=== PATIENT | male | born 1955 | race Caucasian/White ===

== ENCOUNTER 2020-12-02 13:15 | Outpatient (REF) | payer OTHER, SELFPAY ==
[2020-12-02 14:22] LABS: Glucose Urine UA NEG (NEG); Leukocyte Esterase Urine NEG (NEG); Nitrite Urine NEG (NEG); PH 5.5 (5.0-8.0); Specific Gravity - Urine >= 1.030 (1.005-1.025); Urine Blood 3+ (NEG); Urine Ketones NEG (NEG); Urine Protein 1+ MG/DL (NEG-TRACE)
[2020-12-02 14:26] LABS: Appearance Urine HAZY; Color Urine YELLOW
[2020-12-02 14:57] LABS: Bacteria Urine TRACE /LPF; RBC Urine 30-49 /HPF (0); Renal Epithelial Cells Urine TRACE /LPF; UACC CULT YES
== END 2020-12-02 13:16 | disposition home or self-care (01) ==
LOC: HO.LAB 13:15
PROVIDERS: PCP Internal Medicine; Visit Provider Internal Medicine
DX: R30.0 Dysuria (principal)
CPT/HCPCS: 81001; 81003; 87086

== ENCOUNTER 2020-12-09 16:06 | Outpatient (REF) | payer OTHER, SELFPAY ==
--- NOTE | 2020-12-09 | US_ITS ---
EXAMINATION: US RETROPERITONEAL COMPLETE (RENAL) CLINICAL INFORMATION: Urgency, frequency, hematuria. COMPARISON: None TECHNIQUE: Real-time imaging of the kidneys and bladder. FINDINGS: RIGHT KIDNEY: 11.0 x 5.7 x 6.2 cm (SAG x AP x TRV). No hydronephrosis or caliectasis. Renal parenchymal thickness and echogenicity are normal. No renal parenchymal lesion. There are specular echoes interpolar region without twinkling artifact or definite shadowing to confirm calculi. LEFT KIDNEY: 10.0 x 5.8 x 5.7 cm (SAG x AP x TRV). There are scattered small noncommunicating cystic foci in the renal sinus suggesting parapelvic cysts. There is no hydronephrosis. Renal parenchymal thickness and echogenicity are normal. There are scattered specular echoes in the renal sinus but without twinkling artifact or shadowing to confirm calculi. BLADDER: There is mild circumferential bladder wall thickening with trabeculation suggesting chronic bladder outlet obstruction. There are bilateral ureteral jets on color Doppler at the bladder base. No bladder base debris or visible calculus. Prevoid bladder volume 172 mL. Post void bladder residual volume 12 mL. The prostate measures 4.0 x 3.5 x 4.9 cm (volume 35 mL). US/US retroperitoneal comp IMPRESSION: 1. Right: No hydronephrosis or parenchymal lesion. 2. Left: Probable small parapelvic cysts renal sinus. No hydronephrosis or parenchymal lesion. 3. Bilateral: Scattered renal sinus echo echoes without shadowing or twinkling artifact to confirm nonobstructing calculi. 4. Bladder wall trabeculation suggesting chronic mild bladder outlet obstruction. Prostate mildly enlarged (35 mL).
== END 2020-12-09 16:07 | disposition home or self-care (01) ==
LOC: HO.US 16:06
PROVIDERS: PCP Internal Medicine; Visit Provider Internal Medicine
DX: R31.9 Hematuria, unspecified (principal); R39.15 Urgency of urination; R35.0 Frequency of micturition
CPT/HCPCS: 76770

== ENCOUNTER → 2021-03-05 09:26 | Outpatient (BNVA) | payer OTHER, SELFPAY | PROVIDERS: PCP Internal Medicine; Visit Provider Urology ==

== ENCOUNTER 2021-09-03 10:27 | Outpatient (REF) | payer OTHER, SELFPAY ==
[2021-09-03 11:30] LABS: Glucose Random 104 mg/dL (60-115)
[2021-09-03 11:51] LABS: Syphilis Screen Nonreactive (Nonreactive)
[2021-09-03 11:57] LABS: Vitamin B12 559 pg/mL (200-900)
[2021-09-03 11:58] LABS: Thyroid Stimulating Hormone 0.56 uIU/mL (0.32-4.0)
[2021-09-06 12:02] LABS: Ceruloplasmin 26 mg/dL (18-36)
[2021-09-06 22:02] LABS: Prot Elec - Albumin 4.1 g/dL (3.8-4.8); Prot Elec - Alpha1 0.3 g/dL (0.2-0.3); Prot Elec - Alpha2 0.6 g/dL (0.5-0.9); Prot Elec - Beta 1 0.5 g/dL (0.4-0.6); Prot Elec - Beta 2 0.3 g/dL (0.2-0.5); Prot Elec - Gamma 0.7 g/dL (0.8-1.7); Prot Elec - Total Protein 6.5 g/dL (6.1-8.1)
[2021-09-06 22:57] LABS: Anti Nuclear Antibody Screen NEGATIVE (NEGATIVE)
== END 2021-09-03 10:28 | disposition home or self-care (01) ==
LOC: HO.LAB 10:27
PROVIDERS: Internal Medicine; PCP Internal Medicine; Visit Provider Psychiatry & Neurology Neurology
DX: R20.0 Anesthesia of skin (principal); G62.9 Polyneuropathy, unspecified; R25.1 Tremor, unspecified
CPT/HCPCS: 36415; 82390; 82607; 82947; 84165; 84443; 86038; 86039; 86780

== ENCOUNTER 2023-01-23 14:34 | Outpatient (REF) | payer OTHER, MEDICARE, SELFPAY ==
[2023-01-23 15:52] LABS: Appearance Urine Cloudy; Color Urine Dark Yellow; Glucose Urine UA Negative (Negative); Leukocyte Esterase Urine Moderate (2+) (Negative); Nitrite Urine Negative (Negative); UMIC TRIGGER UA YES; Urine Blood Large (3+) (Negative); Urine Ketones Trace mg/dL (Negative); Urine Protein 100 (2+) mg/dL (Neg-Trace)
[2023-01-23 15:57] LABS: Bacteria Urine None Seen (None Seen); Hyaline Casts Urine 0-2 /LPF (0-2); RBC Urine >20 /HPF (0-2); WBC Urine >50 /HPF (0-5)
== END 2023-01-23 14:35 | disposition home or self-care (01) ==
LOC: HO.LAB 14:34
PROVIDERS: PCP Internal Medicine; Visit Provider Internal Medicine
DX: R30.0 Dysuria (principal)
CPT/HCPCS: 81001; 87086

== ENCOUNTER 2023-01-26 10:09 | Outpatient (REF) | payer MEDICARE, SELFPAY ==
--- NOTE | ~2023-01-26 | US_ITS ---
EXAMINATION: US RETROPERITONEAL COMPLETE (RENAL) CLINICAL INFORMATION: Hematuria. COMPARISON: 12/09/2020 TECHNIQUE: Real-time imaging of the kidneys and bladder. FINDINGS: RIGHT KIDNEY: 10.2 x 4.9 x 5.5 cm (SAG x AP x TRV). The kidney is normal in size, contour, and echogenicity. Renal cortical thickness is normal. No calculi or focal parenchymal lesions. No hydronephrosis. LEFT KIDNEY: 9.7 x 5.6 x 7.1 cm (SAG x AP x TRV). The kidney is normal in size, contour, and echogenicity. Renal cortical thickness is normal. A benign parapelvic cyst is present measuring 1.4 cm. This needs no additional imaging or follow-up. No calculi or solid focal parenchymal lesions. No hydronephrosis. BLADDER: Well distended and normal. Bilateral ureteral jets are demonstrated. Prevoid bladder volume is 102 mL. Postvoid bladder volume is 23 mL. PROSTATE: Prostate minimally prominent with a volume of 38 mL. US/US retroperitoneal comp IMPRESSION: No significant abnormality is seen. There is a mildly enlarged prostate. A cause for the patient's hematuria has not been found.
[2023-01-26 10:26] LABS: MANUAL DIFF FLAG NO
[2023-01-26 11:27] LABS: Urine Cytology See Pathology rpt
[2023-01-26 11:34] LABS: Basophils Percent Auto 0.9 % (0-2); Eosinophils Absolute Auto 0.3 X10*3/uL (0.0-0.4); Eosinophils Percent Auto 6.3 % (0-4); Hematocrit 47.3 % (42.0-52.0); Hemoglobin 16.4 g/dl (14.0-18.0); Imm Gran Abs Auto 0.01 X10*3/uL (0.00-0.03); Imm Gran Pct Auto 0.2 % (0.0-0.4); Lymphocytes Absolute Auto 1.5 X10*3/uL (1.2-4.9); Lymphocytes Percent Auto 31.5 % (20-40); Mean Corpuscular HGB Conc 34.7 g/dl (31.0-36.0); Mean Corpuscular Hemoglobin 30.7 pg (27.0-33.0); Mean Corpuscular Volume 88.6 fL (80.0-98.0); Mean Platelet Volume 9.7 fL (9.4-12.4); Monocytes Absolute Auto 0.6 X10*3/uL (0.1-1.2); Monocytes Percent Auto 12.9 % (2-11); Neutrophils Absolute Auto 2.2 x10*3/uL (2.0-8.3); Neutrophils Percent Auto 48.2 % (45-73); Platelet Count 179 X10*3/uL (160-400); Red Blood Count 5.34 X10*6/uL (4.60-5.80); Red Cell Distribution Width 12.8 % (11.0-16.0); White Blood Count 4.6 X10*3/uL (4.8-10.8)
[2023-01-26 16:14] LABS: Alanine Aminotransferase 35 U/L (0-40); Albumin Level 4.4 g/dL (3.5-5.0); Alkaline Phosphatase 68 U/L (39-117); Anion Gap 17 (12-20); Aspartate Amino Transferase 37 U/L (5-37); Bilirubin Total 1.3 mg/dL (0.0-1.0); Blood Urea Nitrogen 18 mg/dL (9-16); Calcium 9.2 mg/dL (8.4-10.2); Carbon Dioxide 22 mmol/L (22-29); Chloride 107 mmol/L (96-108); Cholesterol 175 mg/dL; Estimated Glomerular Filt Rate > 60; Glucose Fasting 88 mg/dL (60-99); HDL Cholesterol 47 mg/dL; LDL Cholesterol Calculated 100 mg/dl; Potassium 4.2 mmol/L (3.3-5.1); Sodium 142 mmol/L (135-145); Total Protein 6.6 g/dL (6.5-8.0); Triglycerides 140 mg/dL
[2023-01-26 16:17] LABS: Prostate Specific Antigen Scr 1.49 ng/mL (<0.05-4.0)
== END 2023-01-26 10:10 | disposition home or self-care (01) ==
LOC: HO.HMGCX 10:09
PROVIDERS: PCP Internal Medicine; Visit Provider Internal Medicine
DX: Z00.00 Encounter for general adult medical examination without abnormal findings (principal); R31.9 Hematuria, unspecified; Z12.5 Encounter for screening for malignant neoplasm of prostate; C80.1 Malignant (primary) neoplasm, unspecified
CPT/HCPCS: 36415; 76770; 80053; 80061; 84153; 85025; 88112

== ENCOUNTER 2023-01-31 15:08 | Outpatient (REF) | payer MEDICARE, SELFPAY ==
[2023-02-02 17:57] LABS: Lyme Abs Screen <0.90 index
== END 2023-01-31 15:09 | disposition home or self-care (01) ==
LOC: HO.LAB 15:08
PROVIDERS: PCP Internal Medicine; Visit Provider Internal Medicine
DX: T14.8XXA Other injury of unspecified body region, initial encounter (principal); W57.XXXA Bitten or stung by nonvenomous insect and other nonvenomous arthropods, initial encounter
CPT/HCPCS: 36415; 86617; 86618

== ENCOUNTER 2023-04-27 12:57 | Outpatient (REF) | payer MEDICARE, SELFPAY ==
[2023-04-27 13:10] LABS: MANUAL DIFF FLAG NO
[2023-04-27 13:37] LABS: Basophils Percent Auto 0.8 % (0-2); Eosinophils Absolute Auto 0.2 X10*3/uL (0.0-0.4); Eosinophils Percent Auto 3.9 % (0-4); Hematocrit 45.9 % (42.0-52.0); Hemoglobin 15.7 g/dl (14.0-18.0); Imm Gran Abs Auto 0.01 X10*3/uL (0.00-0.03); Imm Gran Pct Auto 0.2 % (0.0-0.4); Lymphocytes Absolute Auto 1.2 X10*3/uL (1.2-4.9); Lymphocytes Percent Auto 23.3 % (20-40); Mean Corpuscular HGB Conc 34.2 g/dl (31.0-36.0); Mean Corpuscular Hemoglobin 30.5 pg (27.0-33.0); Mean Corpuscular Volume 89.3 fL (80.0-98.0); Mean Platelet Volume 9.8 fL (9.4-12.4); Monocytes Absolute Auto 0.6 X10*3/uL (0.1-1.2); Monocytes Percent Auto 10.7 % (2-11); Neutrophils Absolute Auto 3.2 x10*3/uL (2.0-8.3); Neutrophils Percent Auto 61.1 % (45-73); Platelet Count 201 X10*3/uL (160-400); Red Blood Count 5.14 X10*6/uL (4.60-5.80); Red Cell Distribution Width 12.7 % (11.0-16.0); White Blood Count 5.2 X10*3/uL (4.8-10.8)
[2023-04-27 14:03] LABS: Alanine Aminotransferase < 5 U/L (0-40); Albumin Level 4.3 g/dL (3.5-5.0); Alkaline Phosphatase 74 U/L (39-117); Anion Gap 12 (12-20); Aspartate Amino Transferase 20 U/L (5-37); Bilirubin Total 1.1 mg/dL (0.0-1.0); Blood Urea Nitrogen 16 mg/dL (9-16); C Reactive Protein < 0.04 mg/dL (< or = 0.50); Calcium 9.6 mg/dL (8.4-10.2); Carbon Dioxide 25 mmol/L (22-29); Chloride 108 mmol/L (96-108); Estimated Glomerular Filt Rate 56; Glucose Random 100 mg/dL (60-115); Potassium 3.9 mmol/L (3.3-5.1); Sodium 141 mmol/L (135-145); Total Protein 6.7 g/dL (6.5-8.0)
[2023-04-27 14:46] LABS: D Dimer High Sensitivity 382 NG/ML
== END 2023-04-27 12:58 | disposition home or self-care (01) ==
LOC: HO.LAB 12:57
PROVIDERS: PCP Internal Medicine; Visit Provider Internal Medicine
DX: R06.02 Shortness of breath (principal); G20 Parkinson's disease
CPT/HCPCS: 36415; 80053; 85025; 85379; 86140

== ENCOUNTER → 2023-05-17 08:46 | Outpatient (BNVA) | payer MEDICARE, SELFPAY | PROVIDERS: PCP Internal Medicine; Visit Provider Internal Medicine Cardiovascular Disease | DX: I20.9 Angina pectoris, unspecified (principal); R42 Dizziness and giddiness; G20 Parkinson's disease | CPT/HCPCS: 93005; 99202 ==

== ENCOUNTER → 2023-05-18 08:50 | Outpatient (REF) | payer MEDICARE, SELFPAY ==
--- NOTE | 2023-05-18 08:54 | CA_ITS ---
Transthoracic Echocardiogram Patient (Last, First, Middle): Robert Barbour J Gender: Male Date of : 1955 Age: 67 Procedure Date: 05/18/2023 Procedure Type: Transthoracic Echocardiogram Location: OP Height: 182.88 cm Weight: 86.18 kg BSA: 2.08 m2 Heart Rate: 50 bpm BP: 90 / 65 mmHg Functional Tester: MESERET Referring MD: Bruce Le MD Education Analyst: Bruce Le MD Symptoms: I20.9 - Angina pectoris, unspecified Study Quality: Fair/Contrast ECG Rhythm: Bradycardia Conclusions: - 1. Normal LV systolic function with LVEF of 65-70% with impaired relaxation filling pattern 2. Mildly dilated left atrium 3. Mild aortic and mitral regurgitation 4. Normal RV systolic pressure 5. No gross pericardial effusion Findings Procedure Information Contrast agent, definity, is being given per protocol without apparent complications. Left Ventricle Normal left ventricular size, thickness, and systolic function. The visually estimated ejection fraction is between 65-70%. Regional wall motion abnormalities can not be excluded due to suboptimal endocardial definition. Spectral Doppler is indicative of an impaired relaxation filling pattern. Right Ventricle The right ventricle was not well visualized. Atria The left atrium is mildly dilated. Interatrial shunt cannot be excluded. The right atrium is normal in size. Aortic Valve The aortic valve was not well visualized. There is no aortic valve stenosis. There is mild aortic valve regurgitation. Mitral Valve There is mild anterior mitral leaflet thickening. There is mild mitral valve regurgitation. There is no mitral valve stenosis. Pulmonic Valve The pulmonic valve was not well visualized. Tricuspid Valve Likely normal tricuspid valve structure and function. There is trace tricuspid valve regurgitation. The right ventricular systolic pressure is normal. The right ventricular systolic pressure is 17 mmHg. Normal right atrial pressure. There is no evidence of pulmonary hypertension. Great Vessels All visible segments of the aorta are normal in size. The pulmonary artery was not well visualized. Venous The inferior vena cava is normal in size and collapses greater than 50% with inspiration. Pericardium/Pleural There is no evidence of pericardial effusion. Prior Study Comparison No prior study available for comparison. Measurements 2D Linear Measurements IVSd: 0.94 0.6-0.9/0.6-1.0 cm LVIDd: 4.49 3.9-5.3/4.2-5.9 cm LVIDd Index: 2.16 2.4-3.2/2.2-3.1 cm/m2 LVIDs: 2.95 2.0-3.6 cm LVPWd: 1.00 0.7-1.1 cm LA Diam: 4.30 2.7-3.8/3.0-4.0 cm LAIDs Index: 2.07 1.5-2.3 cm/m2 LV Mass: 181.57 67-162/88-224 g LV Mass Index: 87.29 43-95/49-115 g/m2 LVOT Diam: 1.90 3.0+(-)1.3 cm 2D Systolic Function EF 4C: 59.90 >55% EF 2C: 73.40 >55% EF BiP: 67.00 >55% Mitral Valve MV Pk E: 0.77 MV PK A: 0.54 MV Decel Time: 190.00 E/A: 1.40 E'Lateral: 11.00 E'Medial: 9.79 E/E' Med: 7.90 E/E' Lat: 7.00 PHT: 56.00 MVA PHT: 3.93 Decel Sutton: 4.06 Aortic Valve AoV Pk Reilly: 1.31 AoV Mn Reilly: 0.94 AoV VTI: 0.30 AoV Pk Grad: 7.00 Aov Mn Grad: 4.00 LETA Cont.VTI: 2.03 LVOT LVOT Pk Reilly: 1.00 LVOT Mn Reilly: 0.63 LVOT VTI: 0.22 LVOT Pk Grad: 4.00 LVOT Mn Grad: 2.00 LVOT Diam: 1.90 LVOT Area: 2.84 Diastolic Function MV Pk E: 0.77 MV Pk A: 0.54 E/A: 1.40 E'Medial: 9.79 E/E' Med: 7.90 E' Laterial: 11.00 E/E' Lat: 7.00 Right Ventricle TAPSE (mm): 23.80 TVS' Reilly: 11.20 Tricuspid Valve TR Pk Reilly: 1.86 TR Pk Grad: 14.00 RA Press: 3.00 RVSP: 17.00 Great Vessels Aorta Sinus of Valsalva: 3.50 2.0-3.5 cm Ao Asc: 3.40 2.1-3.4 cm Pulmonary Valve PV Pk Reilly: 0.76 Peak PV Grad: 2.00 Updated in Other Vendor System with Status of Final Bruce Le MD electronically signed on 05/18/2023 4:11:37 PM with status of Final
== END ==
LOC: HO.CARD 08:50
PROVIDERS: PCP Internal Medicine; Visit Provider Internal Medicine Cardiovascular Disease
DX: I20.9 Angina pectoris, unspecified (principal)
CPT/HCPCS: 93306; Q9957

== ENCOUNTER → 2023-05-19 08:55 | Outpatient (REF) | payer MEDICARE, SELFPAY ==
--- NOTE | 2023-05-19 08:58 | CA_ITS ---
Acquisition Time: 2023-05-19 09:14:04 Total Exercise Time: 00:02:00 Test Indications: I20.9 Angina pectoris Medications: See H Protocol: LEXISCAN Max HR: 102 BPM 67% of Pred: 151 BPM Max BP: 118/062 mmHG Max Work Load: 1.0 METS Pharmacological stress test with Lexiscan injection while sitting and marching in chair, without anginal symptoms, without arrhythmias, with resting hypotension of 88/68 and 94/66 with normotensive response to injection, with non-diagnostic EKGs showing T wave inversions inferior and lateral. Aminophylline given to reverse Lexiscan. Test end BP 108/60. Nuclear images pending. Test reviewed with Dr. Murillo. Referred By: Bruce Le Overread By: MELVA ESPINOZA
== END ==
LOC: HO.CARD 08:55
PROVIDERS: PCP Internal Medicine; Visit Provider Internal Medicine Cardiovascular Disease
DX: I20.9 Angina pectoris, unspecified (principal)
CPT/HCPCS: 78452; 93017; A9500; J0280; J2785

== ENCOUNTER 2023-06-02 09:53 | Outpatient (AMB) | payer MEDICARE, SELFPAY ==
[2023-06-02 10:01] VITALS: BP 110/70; PULSE 58; BMI 26.6
--- NOTE | 2023-06-02 10:01 | MHC.OFFVIS ---
Intake Vital Signs 06/02/23 10:01 Height 6 ft Weight 196 lb 3.382 oz BMI 26.6 BP 110/70 Blood Pressure Location Lt brachial Position Sitting Pulse 58 Pulse Source Pulse Oximeter Intake Visit Reasons: 2 wk f/up mibi/ echo per NS Intake Note: 2 week f/u mibi/echo per NS patient still having some chest tightness y past 2 day dizziness have been gone Field Technician Required: No Allergies No Known Allergies Allergy (Verified 06/02/23 10:07) Medication List - Last Reconciled 06/02/23 by ASHLEE LeeC aspirin (Adult Low Dose Aspirin) 81 mg PO DAILY atorvastatin 80 mg PO DAILY carbidopa-levodopa 25-100 mg ER 3 tabs PO TID citalopram 40 mg PO DAILY fludrocortisone 0.1 mg PO DAILY ranolazine ER 1,000 mg PO BID ropinirole 1 mg PO BID tamsulosin 0.8 mg PO BEDTIME trihexyphenidyl 3 mg PO DAILY HPI 2 wk f/up mibi/ echo per NS HPI Details Robert is a 67-year-old male with past medical history Parkinson's disease, autonomic dysfunction, hyperlipidemia, recent CT scan of chest showing coronary calcifications, chest discomfort who recently underwent a nuclear stress test which was abnormal. He had been started on Ranexa and his dose was increased. His blood pressures had been running low and he was started on fludrocortisone His blood with improvement in his readings. Today he reports that he continues to have discomfort in his left chest region it feels like tightness. It occurs randomly and he does notice some shortness of breath at times. He does not feel the Ranexa has helped his symptoms. He walks his dog a mile a day without concerning symptoms but does not go at a brisk pace. he had been experiencing dizziness especially with position changes. That symptom has improved now that his blood pressure is in a better range. Home blood pressures reviewed and systolic now ranging mid 90s up to 120. No presyncope, syncope, falls. No PND, orthopnea or edema. He has tremors on the right side of his body. Taking all meds as directed. Just started bladder cancer BCG treatments which will be once a week through June. , Chelo is present. [facility] Medical History Bladder cancer Frequent urination Parkinsons disease Social History Patient Tobacco Use Status: Never used Tobacco Review of Systems Const All systems reviewed & are unremarkable except as noted in HPI and below ENT Reports dizziness Card Reports chest pain, Denies chest pain at rest, Denies chest pain with activity, Denies rapid heart rate, Denies pedal edema, Denies edema, Denies leg edema, Denies lightheadedness, Denies palpitations, Denies dyspnea, Denies dyspnea on exertion and Denies orthopnea Resp Denies cough, Denies dyspnea and Denies dyspnea on exertion GI Denies hematochezia and Denies change in stool character Musc Denies abnormal gait, Reports limited range of motion, Reports muscle cramps, Denies muscle weakness, Denies numbness, Denies radiating pain into limb, Denies stiffness and Denies tingling Neuro Denies abnormal gait, Reports dizziness, Denies numbness and Denies tingling Endo Denies palpitations Physical Exam Vital Signs: Last Vital Signs Pulse 58 06/02/23 10:01 BP 110/70 06/02/23 10:01 BMI result Body Mass Index 26.6 Assessment & Plan Assessment & Plan (1) Angina pectoris: Code(s): I20.9 - Angina pectoris, unspecified Plan: recent reports of left chest tightness with some shortness of breath, random occurrence. A recent CT scan of the chest does show coronary calcifications. He underwent cardiac consultation and testing. A nuclear stress test was done on 05/22/2023 showing possible ischemia/ infarct pattern in the inferior wall. Some improvement with CT attenuation which could indicate components of diaphragm attenuation artifact. Patient was started on Ranexa then dose increased due to ongoing symptoms. On last visit he was put on aspirin and high-dose atorvastatin. unable to use beta leobardo or other antianginals due to low blood pressure readings. Today he reports that he continues to have discomfort in his left chest region which he describes as tightness. It has been occurring randomly any does not feel the Ranexa has helped. Reviewed with Dr. Le. Will schedule him for cardiac catheterization to evaluate for obstructive coronary artery disease, stent placement if needed. Risks of the procedure reviewed with patient including infection, bleeding, CATY, mi, stroke. He is agreeable to proceed. preprocedure labs including CBC, BMP and PT INR ordered. Continue all current medications. Emergency care if ever needed for symptoms. Light physical activity. Cardiology follow-up 2 weeks post (2) Coronary artery calcification seen on CAT scan: Code(s): I25.10 - Atherosclerotic heart disease of [place] coronary artery without angina pectoris Plan: cath. (3) Abnormal nuclear stress test: Code(s): R94.39 - Abnormal result of other cardiovascular function study (4) Pre-op evaluation: Code(s): Z01.818 - Encounter for other preprocedural examination Plan: Cardiac catheterization procedure (5) Orthostatic hypotension dysautonomic syndrome: Code(s): I95.1 - Orthostatic hypotension Plan: history of Parkinson's disease. symptom of on last visit reported symptoms of dizziness and. Found to have low blood pressures with mildly orthostatic readings. He was instructed to increase his fluid and salt intake. He continued to have symptoms and fludrocortisone 0.1 mg daily was added. Currently his orthostatic readings are much improved with blood pressure ranging 100-120. His prior dizziness has essentially resolved. Instructed to continue with increased fluids and salt use. Continue fludrocortisone at current dose. use caution when going from sitting to standing. Orders: Orders Basic Metabolic Panel Today I20.9 - Angina pectoris, unspecified, R94.39 - Abnormal result of other cardiovascular function study Prothrombin Time INR Today I20.9 - Angina pectoris, unspecified, R94.39 - Abnormal result of other cardiovascular function study Complete Blood Count Auto Diff Today I20.9 - Angina pectoris, unspecified, R94.39 - Abnormal result of other cardiovascular function study Cardiac Cath LT w PCI Today I20.9 - Angina pectoris, unspecified, R94.39 - Abnormal result of other cardiovascular function study Coding Level of Care Code Est Pt Level 4 (74459) Diagnoses Angina pectoris I20.9 Coronary artery calcification seen on CAT scan I25.10 Abnormal nuclear stress test R94.39 Pre-op evaluation Z01.818 Orthostatic hypotension dysautonomic syndrome I95.1 Time Spent (min) 35 Comment chart review, documentation, interview, assessment, procedure discussion
== END 2023-06-02 11:03 | disposition home or self-care (01) ==
PROVIDERS: PCP Internal Medicine; Visit Provider Nurse Practitioner Family
DX: I25.110 Atherosclerotic heart disease of native coronary artery with unstable angina pectoris (principal); R94.39 Abnormal result of other cardiovascular function study; I95.1 Orthostatic hypotension; Z01.818 Encounter for other preprocedural examination
CPT/HCPCS: 99214

== ENCOUNTER → 2023-06-02 09:53 | Outpatient (BNVA) | payer MEDICARE, SELFPAY | PROVIDERS: PCP Internal Medicine; Visit Provider Nurse Practitioner Family | DX: Z01.818 Encounter for other preprocedural examination (principal); I25.119 Atherosclerotic heart disease of native coronary artery with unspecified angina pectoris; I95.1 Orthostatic hypotension; R94.39 Abnormal result of other cardiovascular function study | CPT/HCPCS: 99212 ==

== ENCOUNTER 2023-07-08 10:47 | Outpatient (REF) | payer MEDICARE, SELFPAY ==
[2023-07-08 10:56] LABS: MANUAL DIFF FLAG NO
[2023-07-08 11:13] LABS: Basophils Percent Auto 0.6 % (0-2); Eosinophils Absolute Auto 0.3 X10*3/uL (0.0-0.4); Eosinophils Percent Auto 4.4 % (0-4); Hematocrit 44.7 % (42.0-52.0); Hemoglobin 15.3 g/dl (14.0-18.0); Imm Gran Abs Auto 0.02 X10*3/uL (0.00-0.03); Imm Gran Pct Auto 0.3 % (0.0-0.4); Lymphocytes Absolute Auto 1.5 X10*3/uL (1.2-4.9); Lymphocytes Percent Auto 23.5 % (20-40); Mean Corpuscular HGB Conc 34.2 g/dl (31.0-36.0); Mean Corpuscular Hemoglobin 30.6 pg (27.0-33.0); Mean Corpuscular Volume 89.4 fL (80.0-98.0); Mean Platelet Volume 8.9 fL (9.4-12.4); Monocytes Absolute Auto 0.8 X10*3/uL (0.1-1.2); Monocytes Percent Auto 12.6 % (2-11); Neutrophils Absolute Auto 3.8 x10*3/uL (2.0-8.3); Neutrophils Percent Auto 58.6 % (45-73); Platelet Count 189 X10*3/uL (160-400); Red Cell Distribution Width 13.2 % (11.0-16.0); White Blood Count 6.4 X10*3/uL (4.8-10.8)
[2023-07-08 11:25] LABS: INTERNATIONAL NORM RATIO 1.4 (0.9-1.1); Prothrombin Time 17.5 SEC (11.1-13.3)
[2023-07-08 11:27] LABS: Anion Gap 11 (12-20); Blood Urea Nitrogen 12 mg/dL (9-16); Calcium 9.6 mg/dL (8.4-10.2); Carbon Dioxide 27 mmol/L (22-29); Chloride 108 mmol/L (96-108); Estimated Glomerular Filt Rate > 60; Glucose Random 70 mg/dL (60-115); Potassium 3.7 mmol/L (3.3-5.1); Sodium 142 mmol/L (135-145)
== END 2023-07-08 10:48 | disposition home or self-care (01) ==
LOC: HO.LAB 10:47
PROVIDERS: PCP Internal Medicine; Visit Provider Nurse Practitioner Family
DX: I20.9 Angina pectoris, unspecified (principal); R94.39 Abnormal result of other cardiovascular function study
CPT/HCPCS: 36415; 80048; 85025; 85610

== ENCOUNTER → 2023-07-13 23:59 | Outpatient (BNV) | payer MEDICARE, SELFPAY | PROVIDERS: PCP Internal Medicine; Visit Provider Internal Medicine Cardiovascular Disease | DX: I20.8 Other forms of angina pectoris (principal); I25.118 Atherosclerotic heart disease of native coronary artery with other forms of angina pectoris | CPT/HCPCS: 92928; 93458; 93571; 99152 ==

== ENCOUNTER 2023-08-01 09:42 | Outpatient (AMB) | payer MEDICARE, SELFPAY ==
[2023-08-01 09:48] VITALS: BP 90/72; PULSE 63; BMI 25.1
--- NOTE | 2023-08-01 09:48 | MHC.OFFVIS ---
Intake Vital Signs 08/01/23 09:48 Height 6 ft Weight 184 lb 11.958 oz BMI 25.1 BP 90/72 Blood Pressure Location Lt brachial Position Sitting Pulse 63 Pulse Source Pulse Oximeter Intake Visit Reasons: AFTER CATH FOLLOW UP Intake Note: f/up after cath pt still felling chest tightness Double End Tenoner Setter Required: No Brine Well Operator: Brine Well Operator Present Accompanied by: Spouse Allergies No Known Allergies Allergy (Verified 08/01/23 09:54) Medication List - Last Reconciled 08/01/23 by NORTH Lee aspirin (Adult Low Dose Aspirin) 81 mg PO DAILY atorvastatin 80 mg PO DAILY carbidopa-levodopa 25-100 mg ER 3 tabs PO TID citalopram 40 mg PO DAILY clopidogrel 75 mg PO DAILY fludrocortisone 0.1 mg PO DAILY pantoprazole 20 mg PO DAILY ropinirole 1 mg PO BID tamsulosin 0.8 mg PO BEDTIME ticagrelor (Brilinta) 90 mg PO BID HPI AFTER CATH FOLLOW UP HPI Details Robert is a 67-year-old male with past medical history of Parkinson's disease, autonomic dysfunction, hyperlipidemia, CT scan of the chest showing coronary calcifications who was evaluated for chest discomfort. He had been started on Ranexa without improvement in his symptom. He underwent cardiac catheterization, had LAD stent and now presents for follow-up. Today he reports that he continues to have a discomfort in his chest that is intermittent tightness. He now believes it is 1 of his Parkinson's medications that is causing this symptom. Since his stent placement he says he feels like a ball of energy . He is noticing decreased fatigue and increased activity tolerance. He is very pleased with how he is feeling. No significant shortness of breath. No palpitations, presyncope, syncope, falls. He does have some mild lightheadedness at times with position changes. No PND, orthopnea or edema. His right radial catheterization site is well healed. He is not interested in cardiac rehab. He walks routinely for exercise. is present. [facility] Medical History (Updated 07/21/23 @ 08:55 by Steffen Murillo MD) Bladder cancer Parkinsons disease Frequent urination Social History Patient Tobacco Use Status: Never used Tobacco Review of Systems Const All systems reviewed & are unremarkable except as noted in HPI and below ENT Denies dizziness Card Reports chest pain, Denies chest pain at rest, Denies chest pain with activity, Denies rapid heart rate, Denies pedal edema, Denies edema, Denies leg edema, Denies lightheadedness, Denies palpitations, Denies dyspnea, Denies dyspnea on exertion and Denies orthopnea Resp Denies cough, Denies dyspnea and Denies dyspnea on exertion GI Denies hematochezia and Denies change in stool character Musc Details: Mobility issues related to Parkinson's Denies abnormal gait, Reports limited range of motion, Denies muscle cramps, Denies muscle weakness, Denies numbness, Denies radiating pain into limb, Denies stiffness and Denies tingling Neuro Denies abnormal gait, Denies dizziness, Denies numbness and Denies tingling Endo Denies palpitations Physical Exam Vital Signs: Last Vital Signs Pulse 63 08/01/23 09:48 BP 90/72 08/01/23 09:48 BMI result Body Mass Index 25.1 Const General: cooperative, healthy appearing, comfortable and no acute distress Orientation/consciousness: patient oriented x3 Neck Neck: Yes normal visual inspection Resp Effort & Inspection: normal respiratory effort Auscultation: clear to auscultation bilaterally, no crackles, no rales, no rhonchi and no wheezes Cardio Jugular venous distension: no JVD Rate: regular rate Rhythm: regular rhythm Heart sounds: S1 normal heart sound present, S2 normal heart sound present, no murmurs and no rubs Neuro General: patient oriented x3 Extrem Other: Right radial catheterization site well healed, easily palpable radial pulse and hand assessment normal General: Yes normal to inspection, No no pedal edema and No calf tenderness Psych Appearance: grossly normal Mental Status: mental status grossly normal Speech and movement: Normal speech and movement present Assessment & Plan Assessment & Plan (1) CAD (coronary artery disease): Code(s): I25.10 - Atherosclerotic heart disease of [place] coronary artery without angina pectoris Plan: Recent reports of left chest tightness with some shortness of breath, random occurrence. A recent CT scan of the chest does show coronary calcifications. A nuclear stress test was done on 05/22/2023 showing possible ischemia/ infarct pattern in the inferior wall. Some improvement with CT attenuation which could indicate components of diaphragm attenuation artifact. Patient was started on Ranexa then dose increased due to ongoing symptoms. On last visit he was put on aspirin and high-dose atorvastatin. unable to use beta leobardo or other antianginals due to low blood pressure readings. He underwent a cardiac catheterization on 07/13/2023 showing mid LAD 65% stenosis, IFR 0.87. VALENTE was placed. Patient reports that he continues to have the same chest tightness and now believes it may be related to 1 of his Parkinson's medications. He does report improvement in his fatigue and activity tolerance since stent placement. He declines cardiac rehab. He tells me he walks routinely for exercise. His Ranexa has been discontinued. Will have him continue on aspirin indefinitely. He is currently on Brilinta however the co-pay is too high and he will be stopping when his bottle runs out. He has approximately 6 days left worth of medication and then will exchange engineer to Plavix. Plavix will be 300 mg on the 1st day followed by 75 mg daily. Continue atorvastatin. [place] LDL goal less than 70. Continue activity as tolerated. He says he will be stopping 1 of his Parkinson's medications and will be will to see if that is the cause of his chest tightness. Instructed to call if his fatigue or activity intolerance reoccurs. Cardiology office visit in 3 months, sooner if needed (2) S/P cardiac catheterization: Comment: 07/13/2023. Left main normal, mid LAD 65% stenosis, IFR 0.87, stent placed, left circumflex, RCA, ramus with minimal irregularities Code(s): Z98.890 - Other specified postprocedural states Plan: Right radial catheterization site well healed. (3) Orthostatic hypotension dysautonomic syndrome: Code(s): I95.1 - Orthostatic hypotension Plan: history of Parkinson's disease. symptoms of lightheadedness with quick position changes. He does run a low blood pressure, previously found to be mildly orthostatic as well. He has increased his fluid and salt intake. He is on fludrocortisone 0.1 mg daily. Inform to continue with good hydration and use caution when going sitting to standing. Discussed compression stockings however he does not feel that they work. (4) Coronary artery calcification seen on CAT scan: Code(s): I25.10 - Atherosclerotic heart disease of [place] coronary artery without angina pectoris Plan: cath. (5) Abnormal nuclear stress test: Code(s): R94.39 - Abnormal result of other cardiovascular function study Coding Level of Care Code Est Pt Level 4 (94149) Diagnoses CAD (coronary artery disease) I25.10 S/P cardiac catheterization Z98.890 Orthostatic hypotension dysautonomic syndrome I95.1 Coronary artery calcification seen on CAT scan I25.10 Abnormal nuclear stress test R94.39 Time Spent (min) 28
== END 2023-08-01 10:26 | disposition home or self-care (01) ==
PROVIDERS: PCP Internal Medicine; Referring Provider Internal Medicine; Visit Provider Nurse Practitioner Family
DX: I25.10 Atherosclerotic heart disease of native coronary artery without angina pectoris (principal); Z98.890 Other specified postprocedural states; I95.1 Orthostatic hypotension; R94.39 Abnormal result of other cardiovascular function study
CPT/HCPCS: 99214

== ENCOUNTER → 2023-08-01 09:42 | Outpatient (BNVA) | payer MEDICARE, SELFPAY | PROVIDERS: PCP Internal Medicine; Referring Provider Internal Medicine; Visit Provider Nurse Practitioner Family | DX: I25.10 Atherosclerotic heart disease of native coronary artery without angina pectoris (principal); I95.1 Orthostatic hypotension; R94.39 Abnormal result of other cardiovascular function study; G20 Parkinson's disease; Z79.82 Long term (current) use of aspirin; Z79.899 Other long term (current) drug therapy | CPT/HCPCS: 99212 ==

== ENCOUNTER 2023-10-30 08:55 | Outpatient (AMB) | payer MEDICARE, SELFPAY ==
[2023-10-30 08:57] VITALS: BP 100/72; PULSE 75; BMI 24.9
--- NOTE | 2023-10-30 08:57 | MHC.OFFVIS ---
Intake Vital Signs 10/30/23 08:57 Height 6 ft Weight 183 lb 6.793 oz BMI 24.9 BP 100/72 Blood Pressure Location Lt brachial Position Sitting Pulse 75 Pulse Source Pulse Oximeter Intake Visit Reasons: 3 month follow up Allergies No Known Allergies Allergy (Verified 10/30/23 08:59) Medication List - Last Reconciled 10/30/23 by Lori Ge, [employer] MACHINE TENDER-C aspirin (Adult Low Dose Aspirin) 81 mg PO DAILY atorvastatin 80 mg PO DAILY carbidopa-levodopa 25-100 mg ER 3 tabs PO TID citalopram 40 mg PO DAILY clopidogrel 75 mg PO DAILY fludrocortisone 0.1 mg PO DAILY pantoprazole 20 mg PO DAILY 90 days tamsulosin 0.8 mg PO BEDTIME HPI 3 month follow up HPI Details Robert is a 68-year-old male with past medical history of Parkinson's disease, autonomic dysfunction, hyperlipidemia, CT scan of the chest showing coronary calcifications, abnormal nuclear stress test followed by cardiac catheterization, showing LAD stenosis, VALENTE placed. Today he reports that since his last visit his increase in energy has declined. He is also experiencing an increasing amount of tightness in his chest which occurs randomly as well as shortness of breath when doing activities. He no longer believes it is his Parkinson's medications. No palpitations, presyncope, syncope, falls. No PND, orthopnea or edema. He does have lightheadedness when he has to stand for any length of time. He is taking salt tablets, 2 daily with some improvement in his lightheaded symptom. Compliant with all meds. Asking when he can have a colonoscopy. [facility] Medical History Bladder cancer Parkinsons disease Frequent urination Social History Patient Tobacco Use Status: Never used Tobacco Review of Systems Const All systems reviewed & are unremarkable except as noted in HPI and below ENT Denies dizziness Card Details: chest tightness, increased shortness of breath Denies chest pain, Denies chest pain at rest, Denies chest pain with activity, Denies rapid heart rate, Denies pedal edema, Denies edema, Denies leg edema, Reports lightheadedness, Denies palpitations, Reports dyspnea, Reports dyspnea on exertion and Denies orthopnea Resp Denies cough, Reports dyspnea and Reports dyspnea on exertion GI Denies hematochezia and Denies change in stool character Musc Details: mobility issues from parkinsons Denies abnormal gait, Denies limited range of motion, Denies muscle cramps, Denies muscle weakness, Denies numbness, Denies radiating pain into limb, Denies stiffness and Denies tingling Neuro Denies abnormal gait, Denies dizziness, Denies numbness and Denies tingling Endo Denies palpitations Physical Exam Vital Signs: Last Vital Signs Pulse 75 10/30/23 08:57 BP 100/72 10/30/23 08:57 BMI result Body Mass Index 24.9 Const General: cooperative, healthy appearing, comfortable and no acute distress Orientation/consciousness: patient oriented x3 Neck Neck: Yes normal visual inspection Resp Effort & Inspection: normal respiratory effort Auscultation: clear to auscultation bilaterally, no crackles, no rales, no rhonchi and no wheezes Cardio Jugular venous distension: no JVD Rate: regular rate Rhythm: regular rhythm Heart sounds: S1 normal heart sound present, S2 normal heart sound present, no murmurs and no rubs Neuro General: patient oriented x3 Extrem General: Yes normal to inspection Psych Appearance: grossly normal Mental Status: mental status grossly normal Speech and movement: Normal speech and movement present Office Procedures EKG Details: Today, read by me, normal sinus rhythm, no acute ST/ T wave abn, rate 70 [id number], Complete Assessment & Plan Assessment & Plan (1) CAD (coronary artery disease): Code(s): I25.10 - Atherosclerotic heart disease of [place] coronary artery without angina pectoris Plan: Last summer had Reports of left chest tightness with shortness of breath, random occurrence. A prior CT scan of the chest does showed coronary calcifications. A nuclear stress test was done on 05/22/2023 showing possible ischemia/ infarct pattern in the inferior wall. Some improvement with CT attenuation which could indicate components of diaphragm attenuation artifact. Patient was started on Ranexa then dose increased due to ongoing symptoms. On last visit he was put on aspirin and high-dose atorvastatin. Unable to use beta leobardo or other antianginals due to low blood pressure readings. He underwent a cardiac catheterization on 07/13/2023 showing mid LAD 65% stenosis, IFR 0.87. VALENTE was placed. On follow-up visit he continued to have the same chest tightness but his fatigue, shortness of breath and activity tolerance level improved. He had declined cardiac rehab. Today he reports that his chest tightness continues and shortness of breath is now present. His increased energy level is now gone. He expresses concern about the symptoms. An EKG done today showing normal sinus rhythm with no acute ST or T-wave abnormalities. Will check a pharmacological nuclear stress test to evaluate for any ischemia. It is possible that his Parkinson's disease is contributing to his symptoms. Will have him continue on aspirin indefinitely. Continue Plavix. Continue atorvastatin. [place] LDL goal less than 70. Continue activity as tolerated. Plan to call him with test results. Cardiology office visit in 3 months, sooner if needed (2) S/P cardiac catheterization: Comment: 07/13/2023. Left main normal, mid LAD 65% stenosis, IFR 0.87, stent placed, left circumflex, RCA, ramus with minimal irregularities Code(s): Z98.890 - Other specified postprocedural states Plan: As above (3) Orthostatic hypotension dysautonomic syndrome: Code(s): I95.1 - Orthostatic hypotension Plan: history of Parkinson's disease. symptoms of lightheadedness with quick position changes. He does run a low blood pressure, previously found to be mildly orthostatic as well. He has increased his fluid and salt intake. He is on fludrocortisone 0.1 mg daily and now using salt tablets. Inform to continue with good hydration and use caution when going sitting to standing. Discussed compression stockings use. Gave him a pair from our office stock. Sit/lay down as needed for symptom. Orders: Orders Complete Blood Count Auto Diff Today R06.02 - Shortness of breath B Type Natriuretic Peptide Today R06.02 - Shortness of breath TSH reflex Free T4 Today R06.02 - Shortness of breath NM cardiolite stress test Today I25.10 - Atherosclerotic heart disease of [place] coronary artery without angina pectoris, R07.89 - Other chest pain, Z98.890 - Other specified postprocedural states CA lexiscan stress w juanito Today I25.10 - Atherosclerotic heart disease of [place] coronary artery without angina pectoris, R06.02 - Shortness of breath, R07.89 - Other chest pain, Z98.890 - Other specified postprocedural states Basic Metabolic Panel Today R06.02 - Shortness of breath Coding Level of Care Code Est Pt Level 4 (85554) Diagnoses CAD (coronary artery disease) I25.10 S/P cardiac catheterization Z98.890 Orthostatic hypotension dysautonomic syndrome I95.1 CPT Codes EKG - CPT: [id number], Complete ([id number]) Time Spent (min) 30
== END 2023-10-30 09:39 | disposition home or self-care (01) ==
PROVIDERS: PCP Internal Medicine; Visit Provider Nurse Practitioner Family
DX: I25.10 Atherosclerotic heart disease of native coronary artery without angina pectoris (principal); Z98.890 Other specified postprocedural states; I95.1 Orthostatic hypotension
CPT/HCPCS: 93010; 99214

== ENCOUNTER 2023-10-30 08:55 | Outpatient (REF) | payer MEDICARE, SELFPAY ==
[2023-10-30 10:00] LABS: MANUAL DIFF FLAG NO
[2023-10-30 10:32] LABS: Basophils Percent Auto 0.5 % (0-2); Eosinophils Absolute Auto 0.2 X10*3/uL (0.0-0.4); Eosinophils Percent Auto 3.1 % (0-4); Hematocrit 45.5 % (42.0-52.0); Hemoglobin 15.3 g/dl (14.0-18.0); Imm Gran Abs Auto 0.02 X10*3/uL (0.00-0.03); Imm Gran Pct Auto 0.4 % (0.0-0.4); Lymphocytes Absolute Auto 1.2 X10*3/uL (1.2-4.9); Lymphocytes Percent Auto 21.7 % (20-40); Mean Corpuscular HGB Conc 33.6 g/dl (31.0-36.0); Mean Corpuscular Hemoglobin 30.2 pg (27.0-33.0); Mean Corpuscular Volume 89.9 fL (80.0-98.0); Mean Platelet Volume 9.2 fL (9.4-12.4); Monocytes Absolute Auto 0.6 X10*3/uL (0.1-1.2); Monocytes Percent Auto 10.2 % (2-11); Neutrophils Absolute Auto 3.5 x10*3/uL (2.0-8.3); Neutrophils Percent Auto 64.1 % (45-73); Platelet Count 183 X10*3/uL (160-400); Red Blood Count 5.06 X10*6/uL (4.60-5.80); Red Cell Distribution Width 12.6 % (11.0-16.0); White Blood Count 5.5 X10*3/uL (4.8-10.8)
[2023-10-30 10:52] LABS: B Type Natriuretic Peptide 54 pg/mL (<100)
[2023-10-30 11:01] LABS: Anion Gap 12 (12-20); Blood Urea Nitrogen 19 mg/dL (9-16); Calcium 9.3 mg/dL (8.4-10.2); Carbon Dioxide 29 mmol/L (22-29); Chloride 105 mmol/L (96-108); Estimated Glomerular Filt Rate > 60; Glucose Random 85 mg/dL (60-115); Sodium 142 mmol/L (135-145)
[2023-10-30 11:19] LABS: TSH reflex Free T4 0.82 uIU/mL (0.32-4.0)
== END 2023-10-30 08:56 | disposition home or self-care (01) ==
LOC: HO.LAB 08:55
PROVIDERS: PCP Internal Medicine; Visit Provider Nurse Practitioner Family
DX: I25.10 Atherosclerotic heart disease of native coronary artery without angina pectoris (principal); I95.1 Orthostatic hypotension; R06.02 Shortness of breath; G20.A1 Parkinson's disease without dyskinesia, without mention of fluctuations; Z98.890 Other specified postprocedural states; Z79.899 Other long term (current) drug therapy
CPT/HCPCS: 36415; 80048; 83880; 84443; 85025; 93005; 99212

== ENCOUNTER → 2023-11-03 09:16 | Outpatient (REF) | payer MEDICARE, SELFPAY ==
--- NOTE | ~2023-11-03 | NM_ITS ---
Myocardial perfusion study Indication: Chest pain Technique: The patient was brought in for a Lexiscan perfusion study on 11/03/2023. Patient performed low-level exercise and was injected 0.4 mg of Lexiscan intravenously. Within a minute of injection, 30 mCi of sestamibi was given intravenously. Images were obtained using the SPECT gamma camera interlaced with the gating device. Images were obtained in supine position. Resting perfusion study was performed on 11/08/2023. Patient was administered 30 mCi of sestamibi intravenously at rest. Images were then obtained in supine position. Images obtained with and without CT attenuation. Total DLP 92 mGy-cm. Images were processed with the software and compared side to side in short axis, horizontal long axis and vertical long axis views. Findings: The stress perfusion study showed attenuation moderately reduced uptake in the inferior inferoseptal wall of the LV myocardium. Attenuation corrected images show minimally reduced uptake in the apex of the LV myocardium. The gated study shows normal LV systolic function with calculated LVEF of 58%. LV cavity is normal in size. The gated study shows normal systolic wall thickening and contraction of segments. Resting study shows no change in perfusion pattern compared to stress perfusion study. Gating at rest reveals normal systolic wall motion with ejection fraction at 69%. The findings are consistent with no clear reversible defect suggestive of ischemia. Likely normal myocardial perfusion. NM/NM cardiolite stress test Impression: 1. Myocardial perfusion imaging study shows likely normal myocardial perfusion 2. Gated LVEF is 58% 3. Transient ischemic dilatation not present EKG is nondiagnostic for ischemia
--- NOTE | 2023-11-03 09:19 | CA_ITS ---
Acquisition Time: 2023-11-03 09:29:27 Total Exercise Time: 00:02:00 Test Indications: cp, sob Medications: SEE H Protocol: LEXISCAN Max HR: 110 BPM 73% of Pred: 150 BPM Max BP: 108/066 mmHG Max Work Load: 1.0 METS Pharmacological stress test with Lexiscan injection while sitting and marching in place, without anginal symptoms, without arrhythmias, with normotensive response to injection, with nondiagnoisitic EKGs. Aminophylline 75mg IVP given to reverse Lexiscan. Nuclear images pending. Test reviewed with Dr. Murillo Referred By: Lori Ge Overread By: Christen Spaulding
== END ==
LOC: HO.CARD 09:16
PROVIDERS: PCP Internal Medicine; Visit Provider Nurse Practitioner Family
DX: R07.89 Other chest pain (principal); R06.02 Shortness of breath; I25.10 Atherosclerotic heart disease of native coronary artery without angina pectoris; Z98.890 Other specified postprocedural states
CPT/HCPCS: 78452; 93017; A9500; J0280; J2785

== ENCOUNTER → 2023-11-03 09:19 | Outpatient (BNV) | payer MEDICARE, SELFPAY | PROVIDERS: PCP Internal Medicine; Visit Provider Nurse Practitioner | DX: R07.9 Chest pain, unspecified (principal) | CPT/HCPCS: 78452; 93016; 93018 ==

== ENCOUNTER 2024-02-15 13:44 | Outpatient (AMB) | payer MEDICARE, SELFPAY ==
[2024-02-15 13:53] VITALS: BP 110/60; PULSE 73; BMI 25.4
--- NOTE | 2024-02-15 13:53 | A.OFFVIS_ITS ---
Intake Vital Signs 02/15/24 13:53 Height 6 ft Weight 186 lb 15.232 oz BMI 25.4 BP 110/60 Pulse 73 Pulse Source Pulse Oximeter Intake Visit Reasons: f/u after testing Outreach Professional Required: No Allergies No Known Allergies Allergy (Verified 10/30/23 08:59) Medication List - Last Reconciled 02/15/24 by Lori Ge BLOOD BANK ASSISTANT-C aspirin (Adult Low Dose Aspirin) 81 mg PO DAILY atorvastatin 80 mg PO DAILY carbidopa-levodopa 25-100 mg ER 3 tabs PO TID citalopram 40 mg PO DAILY clopidogrel 75 mg PO DAILY fludrocortisone 0.1 mg PO DAILY pantoprazole 20 mg PO DAILY 90 days tamsulosin 0.8 mg PO BEDTIME HPI f/u after testing HPI Details Robert is a 68-year-old male with past medical history of Parkinson's disease, autonomic dysfunction, hyperlipidemia, CT scan of the chest showing coronary calcifications, abnormal nuclear stress test followed by cardiac catheterization, showing LAD stenosis, VALENTE placed who reports shortness of breath, had recent nuclear stress test, labs and now presents for follow-up. Today he reports that he continues to notice shortness of breath with activity. He does his routine walking and feels that he needs to stop and rest periodically. He is noticing increasing fatigue and decreased stamina. He is concerned this may be his heart. He also suggest maybe this is related to Parkinson's as he is having increasing difficulty with ambulation. With his shortness of breath he notices a tightness in his chest which is not increasing in severity. No palpitations, presyncope, syncope, falls. No PND, orthopnea or edema. He does have lightheadedness when he has to stand for any length of time. He is taking salt tablets, 2-3 daily with some improvement in his lightheaded symptom. He maintains good hydration. Compliant with all meds. [facility] Medical History Bladder cancer Parkinsons disease Frequent urination Social History Patient Tobacco Use Status: Never used Tobacco Review of Systems Const All systems reviewed & are unremarkable except as noted in HPI and below ENT Reports dizziness Card Denies chest pain, Denies chest pain at rest, Denies chest pain with activity, Denies rapid heart rate, Denies pedal edema, Denies edema, Denies leg edema, Denies lightheadedness, Denies palpitations, Reports dyspnea, Reports dyspnea on exertion and Denies orthopnea Resp Denies cough, Reports dyspnea and Reports dyspnea on exertion GI Denies hematochezia and Denies change in stool character Musc Details: difficulty walking due to parkinsons Denies abnormal gait, Denies limited range of motion, Denies muscle cramps, Denies muscle weakness, Denies numbness, Denies radiating pain into limb, Denies stiffness and Denies tingling Neuro Denies abnormal gait, Reports dizziness, Denies numbness and Denies tingling Endo Denies palpitations Physical Exam Vital Signs: Last Vital Signs Pulse 73 02/15/24 13:53 BP 110/60 02/15/24 13:53 BMI result Body Mass Index 25.4 Const General: cooperative, healthy appearing, comfortable and no acute distress Orientation/consciousness: patient oriented x3 Neck Neck: Yes normal visual inspection Resp Effort & Inspection: normal respiratory effort Auscultation: clear to auscultation bilaterally, no crackles, no rales, no rhonchi and no wheezes Cardio Jugular venous distension: no JVD Rate: regular rate Rhythm: regular rhythm Heart sounds: S1 normal heart sound present, S2 normal heart sound present, no murmurs and no rubs Neuro General: patient oriented x3 Extrem General: Yes normal to inspection Psych Appearance: grossly normal Mental Status: mental status grossly normal Speech and movement: Normal speech and movement present Assessment & Plan Assessment & Plan (1) CAD (coronary artery disease): Code(s): I25.10 - Atherosclerotic heart disease of [place] coronary artery without angina pectoris Plan: Last summer had Reports of left chest tightness with shortness of breath, random occurrence. A prior CT scan of the chest does showed coronary calcifications. A nuclear stress test was done on 05/22/2023 showing possible ischemia/ infarct pattern in the inferior wall, some improvement with CT attenuation which could indicate components of diaphragm attenuation artifact. Patient was started on Ranexa then dose increased due to ongoing symptoms. He was put on aspirin and high-dose atorvastatin. Unable to use beta leobardo or other antianginals due to low blood pressure readings. He underwent a cardiac catheterization on 07/13/2023 showing mid LAD 65% stenosis, IFR 0.87. VALENTE was placed. On follow-up visit he continued to have the same chest tightness but his reported some improvement in his fatigue, shortness of breath and activity tolerance. He had declined cardiac rehab. On follow-up visit he did report shortness of breath and decreasing activity tolerance again. Had labs done 10/30/2023 which showed no findings that could contribute. His BNP 54. A nuclear stress test was done on 11/08/2023 showing likely normal myocardial perfusion imaging, EF 58%. Test results reviewed with him in detail. He continues to report the same symptoms. Discussed possibility that Parkinson's may be contributing to his shortness of breath and activity intolerance. He will further discuss with his Parkinson's p seven. Does not appear fluid overloaded on examination. No clear evidence that his symptoms are related to ischemia or heart failure. Will have him continue on aspirin indefinitely. Continue Plavix uninterrupted for 1 year post stent. Continue atorvastatin. [place] LDL goal less than 70. Continue activity as tolerated. Cardiology office visit in 4 months, sooner if needed (2) S/P cardiac catheterization: Comment: 07/13/2023. Left main normal, mid LAD 65% stenosis, IFR 0.87, stent placed, left circumflex, RCA, ramus with minimal irregularities Code(s): Z98.890 - Other specified postprocedural states Plan: As above (3) Orthostatic hypotension dysautonomic syndrome: Code(s): I95.1 - Orthostatic hypotension Plan: History of Parkinson's disease. symptoms of lightheadedness with quick position changes. He does run a low blood pressure, previously found to be mildly orthostatic as well. He has increased his fluid and salt intake. He is on fludrocortisone 0.1 mg daily and now using salt tablets. Inform to continue with good hydration and use caution when going sitting to standing. Discussed compression stockings use. Gave him a pair from our office stock. Sit/lay down as needed for symptom. Plan Time spent on chart review, documentation, interview and assessment Coding Level of Care Code Est Pt Level 4 (76593) Diagnoses CAD (coronary artery disease) I25.10 S/P cardiac catheterization Z98.890 Orthostatic hypotension dysautonomic syndrome I95.1 Time Spent (min) 28
== END 2024-02-15 14:31 | disposition home or self-care (01) ==
PROVIDERS: PCP Internal Medicine; Visit Provider Nurse Practitioner Family
DX: I25.10 Atherosclerotic heart disease of native coronary artery without angina pectoris (principal); Z98.890 Other specified postprocedural states; I95.1 Orthostatic hypotension
CPT/HCPCS: 99214

== ENCOUNTER → 2024-02-15 13:44 | Outpatient (BNVA) | payer MEDICARE, SELFPAY | PROVIDERS: PCP Internal Medicine; Visit Provider Nurse Practitioner Family | DX: I25.10 Atherosclerotic heart disease of native coronary artery without angina pectoris (principal); I95.1 Orthostatic hypotension; Z98.890 Other specified postprocedural states | CPT/HCPCS: 99212 ==

== ENCOUNTER 2024-05-29 09:26 | Outpatient (AMB) | payer MEDICARE, SELFPAY ==
--- NOTE | 2024-05-29 09:34 | MHC.OFFVIS ---
Vital Signs 05/29/24 09:35 Height 6 ft Weight 180 lb 12.465 oz BMI 24.5 BP 120/76 Blood Pressure Location Lt brachial Position Sitting Pulse 84 Intake Visit Reasons: 4 month follow up Intake Note: 4 month follow-up feeling good Reception Interviewer Required: No [employer]: [employer] Present Accompanied by: Spouse Allergies No Known Allergies Allergy (Verified 10/30/23 08:59) Medication List - Last Reconciled 05/29/24 by Bruce Le MD aspirin (Adult Low Dose Aspirin) 81 mg PO DAILY atorvastatin 80 mg PO DAILY carbidopa-levodopa 25-100 mg ER 3 tabs PO TID citalopram 40 mg PO DAILY clonazepam 0.5 mg PO DAILY clopidogrel 75 mg PO DAILY fludrocortisone 0.1 mg PO DAILY sodium chloride 1,000 mg PO DAILY tamsulosin 0.8 mg PO BEDTIME HPI Comments Details: Robert comes for follow-up. Since last seen he was started on Klonopin for his chest pain and this has led to significant improvement in symptoms. Currently does not have any symptoms of chest tightness. He walks about 1 and half to 2 miles every day without any symptoms of chest pain or shortness of breath. Currently still taking dual antiplatelet therapy. He has recently with heart and humid weather has had some episodes of orthostatic lightheadedness. He has had no syncopal episodes. He recognizes symptoms and takes care. [facility] Medical History Bladder cancer Parkinsons disease Frequent urination Social History Patient Tobacco Use Status: Never used Tobacco Review of Systems Const Denies chills, Denies fatigue, Denies fever(s), Denies frequent falls, Denies weakness, Denies weight gain and Denies weight loss ENT Denies dizziness Card Denies chest pain, Denies leg edema, Denies lightheadedness, Denies palpitations, Denies dyspnea, Denies dyspnea on exertion, Denies orthopnea and Denies other (loss of consciousness) Resp Denies cough, Denies dyspnea and Denies dyspnea on exertion GI Denies hematochezia and Denies change in stool character Musc Denies abnormal gait, Denies muscle weakness, Denies numbness, Denies radiating pain into limb and Denies tingling Neuro Denies abnormal gait, Denies dizziness, Denies frequent falls, Denies numbness, Denies tingling and Denies weakness Endo Denies fatigue and Denies palpitations Physical Exam Vital Signs: Last Vital Signs Pulse 84 05/29/24 09:35 BP 120/76 05/29/24 09:35 BMI result Body Mass Index 24.5 Const General: cooperative, healthy appearing, comfortable and no acute distress Orientation/consciousness: patient oriented x3 Neck Neck: Yes normal visual inspection Resp Effort & Inspection: normal respiratory effort Auscultation: clear to auscultation bilaterally, no crackles, no rales, no rhonchi and no wheezes Cardio Jugular venous distension: no JVD Rate: regular rate Rhythm: regular rhythm Heart sounds: S1 normal heart sound present, S2 normal heart sound present, no murmurs and no rubs Neuro General: patient oriented x3 Extrem General: Yes normal to inspection Psych Appearance: grossly normal Mental Status: mental status grossly normal Speech and movement: Normal speech and movement present Assessment & Plan Assessment & Plan (1) CAD (coronary artery disease): Code(s): I25.10 - Atherosclerotic heart disease of [place] coronary artery without angina pectoris Category: Medical Plan: CAD with drug-eluting stent to LAD about a year ago. Will stop dual antiplatelet therapy and continue lifelong aspirin therapy. Continue high-intensity statin therapy. Target goal LDL less than 70 mg/dL. Advised lipid panel near future. Pathophysiology and management of chronic atherosclerotic disease was discussed. Advised to maintain activity level as tolerated. Advised to call me with any change in symptoms. 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 Doing well with fludrocortisone therapy and he identifies the symptoms well. Continue fludrocortisone therapy. Advised to increase fluid and salt intake especially on days when he significantly hot and humid. Orthostatic precautions were discussed. Advised to call me with any worsening symptoms. Will follow up in the clinic in 1 year's time, sooner p.r.n.. Thank you for allowing me to partake in his care Orders: Orders Lipid Panel Today I25.10 - Atherosclerotic heart disease of [place] coronary artery without angina pectoris Medications: Discontinued clopidogrel Discontinued Reason: Doctor's Order 75 mg PO DAILY 90 tabs 3RF I25.10 - Atherosclerotic heart disease of [place] coronary artery without angina pectoris Coding Level of Care Code Est Pt Level 4 (76027) Diagnoses CAD (coronary artery disease) I25.10 Orthostatic hypotension dysautonomic syndrome I95.1
[2024-05-29 09:35] VITALS: BP 120/76; PULSE 84; BMI 24.5
== END 2024-05-29 09:55 | disposition home or self-care (01) ==
PROVIDERS: PCP Internal Medicine; Visit Provider Internal Medicine Cardiovascular Disease
DX: I25.10 Atherosclerotic heart disease of native coronary artery without angina pectoris (principal); I95.1 Orthostatic hypotension
CPT/HCPCS: 99214

== ENCOUNTER → 2024-05-29 09:26 | Outpatient (BNVA) | payer MEDICARE, SELFPAY | PROVIDERS: PCP Internal Medicine; Visit Provider Internal Medicine Cardiovascular Disease | DX: I25.10 Atherosclerotic heart disease of native coronary artery without angina pectoris (principal); I95.1 Orthostatic hypotension; Z79.82 Long term (current) use of aspirin; Z79.899 Other long term (current) drug therapy | CPT/HCPCS: 99212 ==

== ENCOUNTER 2024-11-01 13:25 | Outpatient (REF) | payer MEDICARE, SELFPAY ==
[2024-11-01 13:37] LABS: MANUAL DIFF FLAG NO
[2024-11-01 13:58] LABS: Basophils Percent Auto 0.4 % (0-2); Eosinophils Absolute Auto 0.2 X10*3/uL (0.0-0.4); Eosinophils Percent Auto 3.2 % (0-4); Hematocrit 44.3 % (42.0-52.0); Hemoglobin 15.9 g/dl (14.0-18.0); Imm Gran Abs Auto 0.01 X10*3/uL (0.00-0.03); Imm Gran Pct Auto 0.2 % (0.0-0.4); Lymphocytes Absolute Auto 1.7 X10*3/uL (1.2-4.9); Lymphocytes Percent Auto 30.1 % (20-40); Mean Corpuscular HGB Conc 35.9 g/dl (31.0-36.0); Mean Corpuscular Hemoglobin 31.2 pg (27.0-33.0); Mean Platelet Volume 8.9 fL (9.4-12.4); Monocytes Absolute Auto 0.6 X10*3/uL (0.1-1.2); Monocytes Percent Auto 10.4 % (2-11); Neutrophils Absolute Auto 3.2 x10*3/uL (2.0-8.3); Neutrophils Percent Auto 55.7 % (45-73); Platelet Count 163 X10*3/uL (160-400); Red Blood Count 5.09 X10*6/uL (4.60-5.80); Red Cell Distribution Width 12.6 % (11.0-16.0); White Blood Count 5.7 X10*3/uL (4.8-10.8)
[2024-11-01 14:34] LABS: Alanine Aminotransferase 20 U/L (0-40); Albumin Level 4.2 g/dL (3.5-5.0); Alkaline Phosphatase 85 U/L (39-117); Anion Gap 10 (12-20); Aspartate Amino Transferase 28 U/L (5-37); Bilirubin Total 0.9 mg/dL (0.0-1.0); Blood Urea Nitrogen 16 mg/dL (9-16); Calcium 9.1 mg/dL (8.4-10.2); Carbon Dioxide 30 mmol/L (22-29); Chloride 105 mmol/L (96-108); Cholesterol 168 mg/dL (<200); Estimated Glomerular Filt Rate > 60; Glucose Fasting 86 mg/dL (60-99); HDL Cholesterol 51 mg/dL (>40); LDL Cholesterol Calculated 88 mg/dL (<100); Potassium 4.3 mmol/L (3.3-5.1); Sodium 141 mmol/L (135-145); Total Protein 6.7 g/dL (6.5-8.0); Triglycerides 147 mg/dL (<150)
[2024-11-01 14:53] LABS: Prostate Specific Antigen 2.74 ng/mL (<0.05-4.0)
== END 2024-11-01 13:26 | disposition home or self-care (01) ==
LOC: HO.LAB 13:25
PROVIDERS: PCP Internal Medicine; Visit Provider Internal Medicine
DX: I25.10 Atherosclerotic heart disease of native coronary artery without angina pectoris (principal); E78.00 Pure hypercholesterolemia, unspecified; Z12.5 Encounter for screening for malignant neoplasm of prostate
CPT/HCPCS: 36415; 80053; 80061; 84153; 85025

== ENCOUNTER 2025-02-13 13:10 | Outpatient (AMB) | payer MEDICARE, SELFPAY ==
--- NOTE | 2025-02-13 13:13 | A.OFFPC_ITS ---
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: No Accompanied by: Spouse Allergies No Known Allergies Allergy (Verified 02/13/25 13:14) Tobacco use date assessed: 02/13/25 Fall risk assessment: No Falls in past year Last assessed Fall Risk: 02/13/25 Dental Screening Dental Screen Date: 02/13/25 Did you have a dental visit in the last 12 months?: Yes Did you have a dental problem in the last 6 months where you did not have access to dental care?: No HPI HPI Comments History of Present Illness Details The patient is a 69 year old male with a past medical history of CAD s/p PCI LAD, ANTONIO, depression, parkinson, CKD, BPH and anxiety presenting for follow up. Last seen by pcp in Oct CV: On lipitor 80mg daily, asa 81mg daily. Sees cardiology. Neuro: On sinemet 25/100 TID. On fludrocortisone. Follows with [facility] for neurology. Recent DBS. Dr Osorio. Saw urology for history of bladder cancer. continues on flomax. Sees Dr Kapoor at [facility]. Cologuard 2023 negative ROS CONSTITUTIONAL: Denies weight loss, fever and chills. HEENT: Denies changes in vision and hearing. RESPIRATORY: Denies SOB and cough. CV: Denies palpitations and CP GI: Denies abdominal pain, nausea, vomiting and diarrhea. : Denies dysuria and urinary frequency. MSK: Denies new myalgia and joint pain. SKIN: Denies rash and pruritus. NEUROLOGICAL: Denies headache PSYCHIATRIC: Denies recent changes in mood. PHYSICAL EXAM: GENERAL: Alert and oriented x 3. NAD EYES: EOMI. Anicteric. HENT: Moist mucous membranes. No scleral icterus. No cervical lymphadenopathy. LUNGS: Clear to auscultation bilaterally. CARDIOVASCULAR: Regular rate and rhythm. No murmur. No JVD. ABDOMEN: Soft, non-tender +bs EXTREMITIES: No edema. Non-tender. SKIN: No rashes or lesions. Warm. NEUROLOGIC: No focal neurological deficits. CN II-XII grossly intact PSYCHIATRIC: Cooperative. Appropriate mood and affect [facility] Medical History (Updated 02/16/25 @ 15:48 by Jill Mcgrath MD) Bladder cancer Parkinsons disease Frequent urination Family History Mother No problems noted. Father Parkinson disease Social History Housing: House Patient Tobacco Use Status: Never used Tobacco e-Cigarette/Vaping Use: Never Used service: No Current occupational status: retired Cognitive needs: No Hearing needs: No Vision needs: Yes (rx glasses) Questionnaire PHQ-9 Over the last 2 weeks, how often have you been bothered by any of the following problems? 1. Little interest or pleasure in doing things: not at all 2. Feeling down, depressed, or hopeless: not at all 3. Trouble falling or staying asleep, or sleeping too much: not at all 4. Feeling tired or having little energy: not at all 5. Poor appetite or overeating: not at all 6. Feeling bad about yourself - or that you are a failure or have let yourself or your family down: not at all 7. Trouble concentrating on things, such as reading the newspaper or watching television: not at all 8. Moving or speaking so slowly that other people could have noticed. Or the opposite - being so fidgety or restless that you have been moving around a lot more than usual: not at all 9. Thoughts that you would be better off or of hurting yourself in some way: not at all Total score: 0 Depression Screening Interpretation: Negative Depression Screening Done: Yes 51729 - PHQ-9 Billing: Yes Source: Developed by Drs. Alexandre Mahmood, Jennifer Diaz, Sherman Salomon and colleagues, with an educational zamzam from [employer]. Thrive Questionnaire Date Thrive assessed: 02/13/25 I am a: Patient Within the past 12 months, did the food you bought not last and you didn't have the money to get more?: Never true Within the past 12 months, did you worry whether your food would run out before you got money to buy more?: Never true Do you have trouble paying for medicines?: No Do you have trouble getting transportation to medical appointments?: No Do you have trouble paying your heating and electricity bill?: No Do you have trouble taking care of your child, family member or friend?: No Do you have trouble with day-to-day activities such as bathing, preparing meals, shopping, managing finances, etc.?: No Are you currently unemployed and looking for a job?: No Are you interested in more education?: No THRIVE Score: 0 AUDIT C Alcohol Use Questionnaire (AUDIT-C) 1. How often do you have a drink containing alcohol?: Never 3. How often do you have six or more drinks on one occasion?: Never Total Score: 0 YOSVANY-7 AMB Questionnaire YOSVANY-7 Date YOSVANY - 7 assessed: 02/13/25 Feeling nervous, anxious, or on edge: 0 = Not at all Not being able to stop or control worryin = Not at all Worrying too much about different things: 0 = Not at all Trouble relaxin = Not at all Being so restless that it is hard to sit still: 0 = Not at all Becoming easily annoyed or irritable: 0 = Not at all Feeling afraid as if something awful might happen: 0 = Not at all Total YOSVANY-7 score (0-4 normal; 5-9 mild; 10-14 moderate; 15-21 severe): 0 Source: Developed by Drs. Alexandre Mahmood, Jennifer Diaz, Sherman Salomon and colleagues, with an educational zamzam from [employer]. Physical exam (Primary Care) Vital Signs: Last Vital Signs Temp 97.5 F 02/13/25 13:14 Pulse 81 02/13/25 13:14 BP 120/76 02/13/25 13:14 Pulse Ox 98 02/13/25 13:14 Oxygen Delivery Method Room Air 02/13/25 13:14 BMI result Body Mass Index 27.0 Tobacco/Smoking Status: Tobacco use Status Tobacco use date assessed 02/13/25 02/13/25 13:16 Patient Tobacco Use Status Never used Tobacco 02/13/25 13:16 e-Cigarette/Vaping Use Never Used 02/13/25 13:16 PHQ-9: PHQ-9 Score PHQ-9: Total score 0 02/16/25 15:45 Depression Screening Interpretation: Negative Thrive Assessment: Date of Thrive Assessment Date Thrive assessed 02/13/25 02/13/25 13:16 Coding Level of Care Code New Pt Level 4 (98829) Diagnoses Coronary artery disease involving seminole coronary artery of seminole heart, unspecified whether angina present I25.10 Associated angina: unspecified whether angina present Coronary Disease-Associated Artery/Lesion type: seminole artery [place] vs. transplanted heart: seminole heart Parkinson's disease, unspecified whether dyskinesia present, unspecified whether manifestations fluctuate G20.A1 Dyskinesia presence: unspecified whether dyskinesia Fluctuating manifestations: unspecified whether manifestations fluctuate Additional Codes PHQ-9 - 51348 - PHQ-9 Billing: Yes ([id number]) Assessment & Plan Assessment & Plan (1) CAD (coronary artery disease): Code(s): I25.10 - Atherosclerotic heart disease of seminole coronary artery without angina pectoris Category: Medical Qualifiers: Associated angina: unspecified whether angina present Coronary Disease- Associated Artery/Lesion type: seminole artery [place] vs. transplanted heart: seminole heart Qualified Code(s): I25.10 - Atherosclerotic heart disease of seminole coronary artery without angina pectoris (2) Parkinsons disease: Code(s): G20 - Parkinson's disease Category: Medical Qualifiers: Dyskinesia presence: unspecified whether dyskinesia Fluctuating manifestations: unspecified whether manifestations fluctuate Qualified Code(s): G20.A1 - Parkinson's disease without dyskinesia, without mention of fluctuations Plan 69 year old male to establish care past medical, surgical, social, family history reviewed Depression/anxiety-controlled Parkinsons-c/w follow up [facility] Medications: New citalopram 40 mg PO DAILY 90 tabs 3RF
[2025-02-13 13:14] VITALS: BP 120/76; PULSE 81; TEMP 36.4; O2SAT 98; BMI 27.0
== END 2025-02-13 13:37 | disposition home or self-care (01) ==
LOC: HO.HMCHD 13:11
PROVIDERS: PCP Internal Medicine; Visit Provider Internal Medicine
DX: I25.10 Atherosclerotic heart disease of native coronary artery without angina pectoris (principal); G20.A1 Parkinson's disease without dyskinesia, without mention of fluctuations

== ENCOUNTER → 2025-02-13 13:10 | Outpatient (BNVA) | payer MEDICARE, SELFPAY | PROVIDERS: PCP Internal Medicine; Visit Provider Internal Medicine | DX: I25.10 Atherosclerotic heart disease of native coronary artery without angina pectoris (principal); G47.33 Obstructive sleep apnea (adult) (pediatric); F32.A Depression, unspecified; G20.A1 Parkinson's disease without dyskinesia, without mention of fluctuations; N18.9 Chronic kidney disease, unspecified; N40.0 Benign prostatic hyperplasia without lower urinary tract symptoms; F41.9 Anxiety disorder, unspecified; Z79.899 Other long term (current) drug therapy | CPT/HCPCS: 96127; 99202 ==

== ENCOUNTER 2025-05-29 14:51 | Outpatient (AMB) | payer MEDICARE, SELFPAY ==
--- OUTSIDE RECORDS SUMMARY | 2025-05-27 23:59 | XMS_ITS | Continuity of Care Document ---
Author Organization [facility] ter Address [address] [place] [address]- Care Team Providers Care Chemical Process Analyst Name Role Phone Jill Mcgrath MD Primary Care Physician [phone] Encounter 05/26/25 - 05/27/[address] [address]- Attending Physician: Not on Staff, Attending MD Referring Physician: Not on Staff, Referring MD Encounter Type: [facility]RI Allergies, Adverse Reactions, Alerts No Known Allergies Immunizations Given and Recorded Vaccine Date Status Refusal Reason SARS-CoV-2 (COVID-19) mRNA BNT-162b2 vac 03/04/21 Given SARS-CoV-2 (COVID-19) mRNA BNT-162b2 vac 02/11/21 Given Medications aspirin 81 mg oral delayed release tablet 81 mg, 1, tablet, By Mouth, Daily, # 30 tablet, Refills 0, Maintenance, 07/13/23 8:26:00 AM EDT, Partial fill upon patient request if the prescription is for a schedule II opioid drug. Start Date: 07/13/23 Status: Ordered Quantity: 30.0 Unit: tablet Repeat number: 1 atorvastatin 80 mg oral tablet 1 tablet = 80 mg, By Mouth, Daily, # 30 tablet, 5 Refills, Maintenance, 07/13/23 8:27:00 AM EDT, Tablet, Partial fill upon patient request if the prescription is for a schedule II opioid drug. Start Date: 07/13/23 Status: Ordered Quantity: 30.0 Unit: tablet Repeat number: 1 carbidopa-levodopa 25 mg-100 mg oral tablet 3 tablet, By Mouth, 3 times a day, # 90 tablet, 0 Refills, Maintenance, 07/13/23 8:27:00 AM EDT, Tablet, Partial fill upon patient request if the prescription is for a schedule II opioid drug. Start Date: 07/13/23 Status: Ordered Quantity: 90.0 Unit: tablet Repeat number: 1 Clonazepam = 0.5 mg, By Mouth, Daily, 0 Refills, Maintenance, 05/05/25 1:22:00 PM EDT, Partial fill upon patient request if the prescription is for a schedule II opioid drug. Start Date: 05/05/25 Status: Ordered Repeat number: 1 duloxetine 30 mg oral enteric coated capsule 1 capsule = 30 mg, By Mouth, Daily, 0 Refills, Maintenance, 05/05/25 1:23:00 PM EDT, Partial fill upon patient request if the prescription is for a schedule II opioid drug. Start Date: 05/05/25 Status: Ordered Repeat number: 1 fludrocortisone 0.1 mg oral tablet 1 tablet = 0.1 mg, By Mouth, Daily, # 30 tablet, 0 Refills, Maintenance, 07/13/23 8:27:00 AM EDT, Tablet, Partial fill upon patient request if the prescription is for a schedule II opioid drug. Start Date: 07/13/23 Status: Ordered Quantity: 30.0 Unit: tablet Repeat number: 1 Sodium Chloride = 1,000 mcg, By Mouth, Daily, 0 Refills, Maintenance, 05/05/25 1:22:00 PM EDT, Partial fill upon patient request if the prescription is for a schedule II opioid drug. Start Date: 05/05/25 Status: Ordered Repeat number: 1 tamsulosin 0.4 mg oral capsule 0.8 mg, 2, capsule, By Mouth, Daily at bedtime, 0.8mg total, # 30 capsule, Refills 0, Maintenance, 07/13/23 8:28:00 AM EDT, Partial fill upon patient request if the prescription is for a schedule II opioid drug. Start Date: 07/13/23 Status: Ordered Quantity: 30.0 Unit: capsule Repeat number: 1 Results Radiology Reports * Exam Date Time Procedure Performing Provider Status 05/26/25 2:35 PM MRI Pelvis W+W/O Contrast Auth (Verified) Notes: (MRI Pelvis W+W/O Contrast) Reason For Exam: Bladder cancer 1.5 ONLY STIMULATOR;Bladder cancer 1.5 ONLY STIMULATOR RESULT: MRI Pelvis W + W/O Contrast [facility] VISIT NUMBER :[id number] Patient Name: Robert Barbour Date of : 1955 Date of Exam: 05-26-2025 Referring Physician: Shady Sheehan [facility] [address] [place] [address] Exam: MR Pelvis (C-/C+) CPT 02408 Room Description: [place] Rosa Maria Rodriguez 1.5 MR Pelvis (C-/C+) CPT 56470 CLINICAL INDICATION: Bladder cancer 1.5 ONLY STIMULATOR Bladder cancer 1.5 ONLY STIMULATOR Protocol TECHNIQUE: Multiplanar, multisequence pre and post contrast MRI evaluation of the pelvis was performed. 9 cc of Elucirem gadolinium administered intravenously. COMPARISON: CT urogram-01/28/2025. FINDINGS: LOWER GI TRACT: Visualized bowel is unremarkable. REPRODUCTIVE ORGANS: The prostate gland is enlarged and heterogeneous in appearance. Bilateral seminal vesicles are unremarkable. No discrete suspicious lesion. BLADDER: Partially distended. There is circumferential, but somewhat irregular wall thickening involving the urinary bladder. There is no discrete intraluminal mass. A component of the trabeculated appearance of the bladder wall is likely due to chronic partial bilateral obstruction. Slightly increased enhancement of the posterior and posterolateral bladder wall measuring approximately 5 mm (17/14, 51/15). No definite corresponding abnormality on the noncontrast sequences with no diffusion restriction. LYMPH NODES: No pathologically enlarged pelvic or inguinal lymph nodes. FREE FLUID: No intraperitoneal or extraperitoneal fluid. VESSELS: Unremarkable. BONES: No suspicious osseous lesion. IMPRESSION: No discrete intraluminal mass component is identified. Slightly asymmetric wall thickening along the left posterior and posterolateral bladder wall with increased enhancement, though no corresponding abnormality on the noncontrast sequences and no focal diffusion restriction. Differential considerations include sequelae of posttreatment change with residual neoplasm difficult to exclude. No abnormal extravesicular soft tissue. Continued surveillance is recommended. No evidence of pelvic krzysztof metastatic disease. I, Trevor Alexander MD, have reviewed the images and report and concur with the resident, Ralph Tamayos, findings. Electronically Signed By: Trevor Alexander MD Dictated By: Not on Staff , JYOTSNA KATHLEEN Dictated Date/Time: 05/27/25 4:17 pm Reviewed By: Not on Staff , JYOTSNA KATHLEEN Signed By: Not on Staff , JYOTSNA KATHLEEN Signed Date/Time: 05/27/25 4:17 pm Transcribed By: BRADEN Transcribed Date/Time: 05/27/25 4:17 pm Social History Social History Type Response Smoking Status Never (less than 100 in lifetime) entered on: 05/05/25 Sex Sex Representation Male (finding) Patient Care team information Care Team Personnel Name: Jill Mcgrath MD Position: Reference Physician Member Role: PCP Address: [address] [place] [id number] Telecom: Care Team Related Persons Name: KURTIS BARBOUR Insurance Providers Guarantor name: ROBERT BARBOUR Health Plan Information #: 1 Payer: MEDICARE B Payer Identifier: LUIS Member Number: [id number] Group Number: [id number] Subscriber Identifier: [id number] Relationship to Subscriber: self Coverage Type: NA Coverage Verification Date: NA Telecom: NA Address: Health Plan Information #: 2 Payer: MEDEX SECONDARY ONLY Payer Identifier: LUIS Member Number: [id number] Group Number: NA Subscriber Identifier: [id number] Relationship to Subscriber: self Coverage Type: Medicare Other Coverage Verification Date: NA Telecom: NA Address:
--- OUTSIDE RECORDS SUMMARY | 2025-05-29 14:54 | XMS_ITS | Clinical Summary ---
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 Social History Tobacco Use Types Packs/Day Years Used Date Smoking Tobacco: Never Assessed Sex and Gender Information Value Date Recorded Sex Assigned at Not on file Legal Sex Male 7:41 PM EDT Gender Identity Not on file Sexual Orientation Not on file Plan of Treatment Health Maintenance Due Date Last Done Comments Hepatitis C Screening 1955 DTaP/Tdap/Td (1 - Tdap) 1971 Pneumococcal 50+ years (1 of 1 - PCV) 2003 Zoster (Shingrix) (1 of 2) 2003 COVID-19 Vaccine ( - 2023-2 5 season) 2024 Influenza (#1) 2025 RSV (1 - 1-dose 75+ series) 2028 Abdominal Aorta Imaging Discontinued HPV Vaccine Aged Out No longer eligi ble based on patient's age to complete this topic Hep A Aged Out No longer eligi ble based on patient's age to complete this topic Hep B Aged Out No longer eligi ble based on patient's age to complete this topic Hib Aged Out No longer eligi ble based on patient's age to complete this topic Meningococcal ACWY Aged Out No longer eligible based on patient's age to complete this topic Zoster (Zostavax) Discontinued Care Teams Recreational Leader Relationship Specialty Start Date End Date Jacy Poole PCP - General 06/26/23
--- OUTSIDE RECORDS SUMMARY | 2025-05-29 14:54 | XMS_ITS | Patient Health Record ---
Author Organization [facility] Address [address] [place] [address] Care Team Providers Care Architectural Representative Name Role Phone Sawyer Lay MD Primary Care Provider Alexandre Pepper Unavailable [phone] Reason For Referral No Information Medications Medication SIG (Take, Route, Frequency, Duration) Notes Start Date End Date Status MoviPrep 100 GM as directed Orally o nce for 1 dose 01/18/2012 11/20/2024 Active Citalopram & Diet Manage Prod 11/20/2024 11/20/2024 Active Simvastatin Active Problems Problem Type SNOMED Code ICD Code Onset Dates Problem Status W/U Status Risk Notes Problem Special screening for malignant neoplasms, colon (V76.51) Active confirmed Plan Of Treatment Future Test Test Name Order Date COLONOSCOPY 01/18/2012 Insurance Providers Payer Name Payer Address Payer Phone Subscriber Number Group Number Insured Name Patient Relationship to Insured Coverage Start Date Coverage End Date [facility] [address] [place], [place] [id number] RUSS HERRON Self - patient is the insured Medical (General) History Medical History History ICD Code Hyperlipidemia Anxiety Denies [place],DM,CVA,Lung disease,renal dise ase Surgical History Surgery Date(Month/Year) Vein ligation Rectal fissure
--- OUTSIDE RECORDS SUMMARY | 2025-05-29 14:54 | XMS_ITS | Encounter Summary ---
Author Organization [facility] Address [address] [place] [address] Care Team Providers Care Pallet Stone Positioner Name Role Phone Physician, Pcp Unknown Primary Care Provider Ansley vailable Encounter Details Date Type Department Care Team (Late st Contact Info) Description 02/11/2025 Lab Requisition [facility] - Main Lab [address] [place] [address] Torsten Kapoor MD [address] [facility] [address] [place] [address] Malignant neoplasm of lateral wall of bladder (CMS/HCC V24, CMS/HCC V28) Social History Tobacco Use Types Packs/Day Years Used Date Smoking Tobacco: Never Assessed Sex and Gender Information Value Date Recorded Sex Assigned at Not on file Legal Sex Male 11:25 AM EST Gender Identity Not on file Sexual Orientation Not on file documented as of this encounter Plan of Treatment Not on file documented as of this encounter Procedures Procedure Name Priority Date/Time Associated Diagnosis Comments AP OUTSIDE CONSULT Routine 02/04/2025 12 :00 AM EDT Malignant neoplasm of lateral wall of bladder (CMS/HCC) documented in this encounter Results * Anatomic pathology outside consult (02/04/2025 12:00 AM EDT) Final Diagnosis A. Urine, Voided, ([id number]): Atypical urothelial cells Results of UroVysion fluorescence in situ hybridization (FISH) testing: CEP3: Abnormal CEP7: Abnormal CEP17: Abnormal LSI 9p21: Normal Interpretation: Abnormal profile Controls stained appropriately. Note: Abnormal results are considered suspicious for urothelial carcinoma. 02/17/2025 9:47 AM EDT [facility] Clinical Information Malignant neoplasm of lateral wall of bladder C67.2 Urine Cytology/FISH (now) 02/17/2025 9:47 AM EDT [facility] Gross Description A. Urine, Voided, ([id number]): Received one ThinPrep slide for cytology and one ThinPrep slide for UroVysion FISH 02/17/2025 9:47 AM EDT [facility] Disclaimer Unless otherwise specified, all tissue is 10% NB formalin fixed and paraffin embedded. Technical pathology services provided by [facility] at [address], [place] [address] (CLIA #[id number]/Margarita Ryan MD, Iron Caster) 02/17/2025 9:47 AM EDT [facility] Tissue Urine specimen from urethra / Unknown 02/04/2025 02/11/2025 2:13 PM EDT us Torsten Kapoor MD LAB PATHOLOGY ORDERABLES Final Result [facility] [address] [place] [address], documented in this encounter Visit Diagnoses Diagnosis Malignant neoplasm of lateral wall of bladder (CMS/HCC V24, CMS/HCC V28) Malignant neoplasm of lateral wall of urinary bladder documented in this encounter Care Teams Pallet Stone Positioner Relationship Specialty Start Date End Date Physician, Pcp Unknown PCP - General 03/28/25 documented as of this encounter
--- OUTSIDE RECORDS SUMMARY | 2025-05-29 14:54 | XMS_ITS | Clinical Summary ---
Author Organization [facility] Address [address] [place] [address] Care Team Providers Care Insole Buffer Name Role Phone Sawyer Lay Primary Care Provider [phone] Allergies No known active allergies Medications tamsulosin (FLOMAX) 0.4 mg capsule Take 0.8 mg by mouth nightly. 2 Active atorvastatin (LIPITOR) 80 mg tablet Take 80 mg by mouth nightly. 3 Active fludrocortison e (FLORINEF) 0.1 mg tablet Take 0.1 mg by mouth once a day. 3 Active sodium chloride 1,000 mg tablet,soluble Take 1 g by mouth 3 times daily. 3 Active acetaminophen (TYLENOL) 325 mg tablet Take 2 tablets (650 mg total) by mouth every 6 hours as needed for pain. 5 Active senna (SENOKOT) 8.6 mg tablet Take 2 tablets (17.2 mg total) by mouth nightly. 5 Active aspirin 81 mg EC tablet Take 1 tablet (81 mg total) by mouth once a day. [address] (CYMBALTA) 30 mg capsule Take 1 capsule (30 mg total) by mouth once a day. 90 capsule 3 5 04/30/20 26 Active carbidopa-levo dopa (SINEMET) 25-100 mg tablet TAKE 3 TABLETS THREE TIMES A DAY 810 tablet 3 5 Active clonazePAM (KlonoPIN) 0.5 mg tablet 0.5 mg 2 times a day. Active citalopram (CeleXA) 40 mg tablet Take 40 mg by mouth once a day. 2 04/30/20 25 Discontinued clonazePAM (KlonoPIN) 0.5 mg tablet Take 1 tablet (0.5 mg total) by mouth once a day. 90 tablet 1 4 05/05/20 25 carbidopa-levo dopa (SINEMET) 25-100 mg per tablet Take 3 tablets by mouth 3 times a day. 05/05/20 25 Discontinued citalopram (CeleXA) 10 mg tablet Take 1 tablet (10 mg total) by mouth once a day for 3 days. 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 Encounters Date Type Department Care Team Description 05/16/2025 11:00 AM EDT Office Visit [facility] [address] [place] [address] Lissy Brantley NP Parkinson's disease with dyskinesia without fluctuating manifestations (HCC) (Primary Dx); S/P deep brain stimulator placement; Anxiety 05/13/2025 Telephone [facility] [address] [place] [phone] Mayi Arredondo RN 05/05/2025 Refill [facility] [address] [place] [address] Pearl Masterson MD 04/17/2025 Telephone [facility] [address] [place] [phone] Lissy Brantley NP Radiation treatment and DBS 03/24/2025 9:45 AM EDT Follow-Up [facility] [address] [place] [id number] Ashley Perez MD PhD S/P deep brain stimulator placement (Primary Dx) 03/19/2025 9:00 AM EDT Office Visit [facility] [address] [place], [place] [id number] Lissy Brantley NP Parkinson's disease with dyskinesia without fluctuating manifestations (HCC) (Primary Dx); S/P deep brain stimulator placement from Last 3 Months Family History Medical History Relation Name Comments Parkinsonism Father Relation Name Status Comments Father Mother Social History Tobacco Use Types Packs/Day Years Used Date Smoking Tobacco: Never Smokeless Tobacco: Never Tobacco Cessation:Counseling Given: Not Answered Alcohol Use Standard Drinks/Week Comments Never 0 (1 standard drink = 0.6 oz pur e alcohol) Sex and Gender Information Value Date Recorded Sex Assigned at Male 10/23/2022 3:47 PM EST Legal Sex Male 12:09 PM EST Gender Identity Male 10/23/2022 3:47 PM EST Sexual Orientation Straight 10/23/2022 3: 47 PM EST Last Filed Vital Signs Vital Sign Reading Time Taken Comments Blood Pressure 102/75 05/16/2025 11:08 AM EDT Pulse 98 05/16/2025 11:08 AM EDT Temperature 36.2 C (97.2 F) 05/16/2025 11:04 AM EDT Respiratory Rate 16 05/16/2025 11:04 AM EDT Oxygen Saturation 98% 05/16/2025 11:04 AM EDT Inhaled Oxygen Concentration - - Weight 88.5 kg (195 lb) 05/16/2025 11:04 AM EDT Height 182.9 cm (6') 05/16/2025 11:04 AM EDT Body Mass Index 26.45 05/16/2025 11:04 AM EDT Plan of Treatment Health Maintenance Due Date Last Done Comments Cologuard 1955 Colon Cancer Screening 1955 Colonoscopy 1953 FOBT / Fit Test 1953 Hepatitis C Screening 1955 Sigmoidoscopy 1955 Medicare AWV 1954 DTaP,Tdap,and Td Vaccines (1 - Tdap) 1975 Pneumococcal Vaccine: 50+ Years (1 of 1 - PCV) 2003 Alcohol/Substance Use Screening 11/20/2024 Depression Screening and Follow-Up 11/20/2024 Health Care Proxy Review 11/20/2024 Social Drivers of Health Annual Screening 11/20/2024 COVID-19 Vaccine ( season) 2025 08/10/2024, 09/04/2023, 09/23/2022, Additional history exists Influenza Vaccine (#1) 2025 , 08/14/2023, 09/09/2022, Additional history exists Fall Risk Screening 05/16/2026 05/16/2025 RSV Vaccine (60+ years old and patients) (1 - 1-dose 75+ series) 2028 Tobacco Screening 11/20/2042 05/16/2025 Zoster Vaccines Completed 12/30/2021, 10/22/2021 Statin Therapy Completed 05/17/2023 Hepatitis B Vaccines Aged Out No long er eligible based on patient's age to complete this topic Medical Devices Implanted Type Area Automobile Washer Steam Device Identifier Shelf Expiration Date Model / Serial / Lot Lead Dbs Sensight 42cm - [id number] Implanted:Qty: 1 on 11/26/2024 by Ashley Perez MD PhD at [facility] Implant Right: Brain Medtronic 11/08/2026 [id number] / / [id number] Kit Wang Hole Device Dbs - [id number] Implanted:Qty: 1 on 11/26/2024 by Ashley Perez MD PhD at [facility] Implant Right: Cranial Medtronic 08/06/2026 [id number] / / [id number] Kit Wang Hole Device Dbs - [id number] - [id number] Implanted:Qty: 1 on 12/10/2024 by Ashley Perez MD PhD at [facility] Implant Cranial Medtronic 09/10/2026 [id number] / [id number] / Lead Marker Bilateral Dbs Sensight 42cm - [id number] - [id number] Implanted:Qty: 1 on 12/10/2024 by Ashley Perez MD PhD at [facility] Implant Cranial Medtronic 11/18/2026 [id number] / [id number] / Extension System Lead Directional Marked Dbs 60cm Sensight - [id number] - [id number] Implanted:Qty: 1 on 12/10/2024 by Ashley Perez MD PhD at [facility] Implant Left: Cranial Medtronic 07/09/2026 [id number] / [id number] / Extension System Lead Directional Dbs 60cm Sensight - [id number] - [id number] Implanted:Qty: 1 on 12/10/2024 by Ashley Perez MD PhD at [facility] Implant Right: Cranial Medtronic 11/04/2026 [id number] / [id number] / Stimulator Deep Brain Rechargeable Percept Rc - [id number] - [id number] Implanted:Qty: 1 on 12/10/2024 by Ashley Perez MD PhD at [facility] Implant Right: Chest Wall Medtronic 10/03/2026 [id number] / [id number] / Insurance MEDICARE Advance Directives Documents on File Type Date Recorded 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 Expl [facility] Care Proxy 11/26/2024 6:31 AM Chelo Angle * Full Code (Latest Code Status on File) Date Activated Date Inactivated Comments 12/10/2024 11:58 AM 12/11/2024 12:40 PM * Full Code Date Activated Date Inactivated Comments 12/10/2024 6:38 AM 12/10/2024 11:58 AM * Full Code Date Activated Date Inactivated Comments 11/26/2024 12:32 PM 11/27/2024 1:38 PM * Full Code Date Activated Date Inactivated Comments 11/26/2024 6:25 AM 11/26/2024 12:32 PM Care Teams Insole Buffer Relationship Specialty Start Date End Date Sawyer Lay [address] [place] [address] dr Tyrell Santillan, [place] [address] PCP - General Internal Medicine 09/30/22
[2025-05-29 14:56] VITALS: BP 120/72; PULSE 84; BMI 26.3
--- NOTE | 2025-05-29 14:56 | A.OFFVIS_ITS ---
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 He is accompanied by his . He underwent deep brain stimulation for his Parkinson's disease and says that that has improved some of his symptoms. Although no changes medications. He had a CAT scan recently which showed coronary calcification which is known. He had a myocardial perfusion imaging in 2012 which was within normal limits. He walks about a mi and a half and has no exertional symptoms of chest pain or shortness of breath. His symptoms of lightheadedness have remained stable and blood pressures remained around systolic 120-130 on fludrocortisone therapy. He has not had any syncopal events. No significant orthostatic symptoms. No prolonged palpitation irregular heartbeat. No heart failure symptoms. [facility] Medical History (Updated 05/29/25 @ 15:22 by Bruce Le MD) Angina pectoris Abnormal nuclear stress test Coronary artery calcification seen on CAT scan Bladder cancer Parkinsons disease Frequent urination Surgical History (Updated 05/29/25 @ 15:22 by Bruce Le MD) S/P cardiac catheterization Family History Mother No problems noted. Father Parkinson disease Social History Housing: House Patient Tobacco Use Status: Never used Tobacco e-Cigarette/Vaping Use: Never Used service: No Current occupational status: retired Cognitive needs: No Hearing needs: No Vision needs: Yes (rx glasses) Review of Systems Const Denies chills, Denies fatigue, Denies fever(s), Denies frequent falls, Denies weakness, Denies weight gain and Denies weight loss ENT Denies dizziness Card Denies chest pain, Denies leg edema, Denies lightheadedness, Denies palpitations, Denies dyspnea, Denies dyspnea on exertion, Denies orthopnea and Denies other (loss of consciousness) Resp Denies cough, Denies dyspnea and Denies dyspnea on exertion GI Denies hematochezia and Denies change in stool character Musc Denies abnormal gait, Denies muscle weakness, Denies numbness, Denies radiating pain into limb and Denies tingling Neuro Denies abnormal gait, Denies dizziness, Denies frequent falls, Denies numbness, Denies tingling and Denies weakness Endo Denies fatigue and Denies palpitations Physical Exam Vital Signs: Last Vital Signs Pulse 84 05/29/25 14:56 BP 120/72 05/29/25 14:56 BMI result Body Mass Index 26.3 Const General: cooperative, healthy appearing, comfortable and no acute distress Orientation/consciousness: patient oriented x3 Neck Neck: Yes normal visual inspection Resp Effort & Inspection: normal respiratory effort Auscultation: clear to auscultation bilaterally, no crackles, no rales, no rhonchi and no wheezes Cardio Jugular venous distension: no JVD Rate: regular rate Rhythm: regular rhythm Heart sounds: S1 normal heart sound present, S2 normal heart sound present, no murmurs and no rubs Neuro General: patient oriented x3 Extrem General: Yes normal to inspection Psych Appearance: grossly normal Mental Status: mental status grossly normal Speech and movement: Normal speech and movement present Assessment & Plan Assessment & Plan (1) CAD (coronary artery disease): Code(s): I25.10 - Atherosclerotic heart disease of [place] coronary artery without angina pectoris Category: Medical Qualifiers: Coronary Disease-Associated Artery/Lesion type: [place] artery [place] vs. transplanted heart: [place] heart Associated angina: unspecified whether angina present Qualified Code(s): I25.10 - Atherosclerotic heart disease of [place] coronary artery without angina pectoris Plan: CAD with drug-eluting stent to LAD with noted coronary calcium on the CAT scan which is not surprising given that he has known coronary disease. He has diffuse coronary disease with LAD stent. Currently not having any symptoms of angina with current functional capacity. Continue lifelong aspirin therapy. Continue high-intensity statin therapy with target goal LDL less than 70 mg/dL. Advised repeat lipid panel if LDL is not well optimized consider adding ezetimibe to his regimen. Blood pressure is currently well optimized. He is currently active and walks about a mi and a half. Advised to call me with any new symptoms. (2) Orthostatic hypotension dysautonomic syndrome: Code(s): I95.1 - Orthostatic hypotension Category: Medical Plan: Orthostatic hypotension due to dysautonomia syndrome secondary to Parkinson's disease. This has resolved on current fludrocortisone therapy. He is doing very well from that perspective. We discussed about management. Orthostatic precautions were discussed. He understands management well. Advised to maintain adequate hydration and salt intake. He understands agrees. Advised to continue monitor blood pressure at home maintain a log. Will follow up in the clinic in 1 year's time, sooner p.r.n.. Thank you for allowing me to partake in his care Coding Level of Care Code Est Pt Level 4 (43088) Complex EM visit Add On G2211 Diagnoses Coronary artery disease involving [place] coronary artery of [place] heart, unspecified whether angina present I25.10 Coronary Disease-Associated Artery/Lesion type: [place] artery [place] vs. transplanted heart: [place] heart Associated angina: unspecified whether angina present Orthostatic hypotension dysautonomic syndrome I95.1
== END 2025-05-29 15:38 | disposition home or self-care (01) ==
LOC: HO.HCS 14:52
PROVIDERS: PCP Internal Medicine; Visit Provider Internal Medicine Cardiovascular Disease
DX: I25.10 Atherosclerotic heart disease of native coronary artery without angina pectoris (principal); I95.1 Orthostatic hypotension
CPT/HCPCS: 99214; G2211

== ENCOUNTER → 2025-05-29 14:51 | Outpatient (BNVA) | payer MEDICARE, SELFPAY | PROVIDERS: PCP Internal Medicine; Visit Provider Internal Medicine Cardiovascular Disease | DX: I25.10 Atherosclerotic heart disease of native coronary artery without angina pectoris (principal); I95.1 Orthostatic hypotension | CPT/HCPCS: 99212 ==